=== PATIENT | male | born 1985 | race Caucasian/White ===

== ENCOUNTER 2022-05-30 08:27 | Outpatient (REF) | payer OTHER, SELFPAY ==
[2022-05-30 11:48] LABS: MANUAL DIFF FLAG NO
[2022-05-30 11:58] LABS: Basophils Absolute Auto 0.1 X10*3/uL (0.0-0.2); Eosinophils Absolute Auto 0.1 X10*3/uL (0.0-0.4); Eosinophils Percent Auto 1.3 % (0-4); Hematocrit 47.5 % (42.0-52.0); Hemoglobin 16.2 g/dl (14.0-18.0); Imm Gran Abs Auto 0.02 X10*3/uL (0.00-0.03); Imm Gran Pct Auto 0.4 % (0.0-0.4); Lymphocytes Percent Auto 38.6 % (20-40); Mean Corpuscular HGB Conc 34.1 g/dl (31.0-36.0); Mean Corpuscular Hemoglobin 28.7 pg (27.0-33.0); Mean Corpuscular Volume 84.2 fL (80.0-98.0); Mean Platelet Volume 12.6 fL (9.4-12.4); Monocytes Absolute Auto 0.5 X10*3/uL (0.1-1.2); Monocytes Percent Auto 8.6 % (2-11); Neutrophils Absolute Auto 2.6 x10*3/uL (2.0-8.3); Neutrophils Percent Auto 50.1 % (45-73); Platelet Count 170 X10*3/uL (160-400); Red Blood Count 5.64 X10*6/uL (4.60-5.80); Red Cell Distribution Width 13.2 % (11.0-16.0); White Blood Count 5.2 X10*3/uL (4.8-10.8)
[2022-05-30 12:06] LABS: Appearance Urine Clear; Color Urine Yellow; Glucose Urine UA Negative (Negative); Leukocyte Esterase Urine Negative (Negative); Nitrite Urine Negative (Negative); Specific Gravity - Urine <= 1.005 (1.005-1.025); Urine Blood Negative (Negative); Urine Ketones Negative (Negative); Urine Protein Negative (Neg-Trace)
[2022-05-30 12:49] LABS: TSH reflex Free T4 1.92 uIU/mL (0.32-4.0)
[2022-05-30 12:51] LABS: Alanine Aminotransferase 26 U/L (0-40); Albumin Level 5.1 g/dL (3.5-5.0); Alkaline Phosphatase 61 U/L (39-117); Anion Gap 18 (12-20); Aspartate Amino Transferase 18 U/L (5-37); Bilirubin Total 0.9 mg/dL (0.0-1.0); Blood Urea Nitrogen 13 mg/dL (9-16); Calcium 10.4 mg/dL (8.4-10.2); Carbon Dioxide 26 mmol/L (22-29); Chloride 100 mmol/L (96-108); Cholesterol 286 mg/dL; Estimated Glomerular Filt Rate > 60; Glucose Fasting 87 mg/dL (60-99); HDL Cholesterol 57 mg/dL; LDL Cholesterol Calculated 208 mg/dl; Potassium 4.7 mmol/L (3.3-5.1); Sodium 139 mmol/L (135-145); Total Protein 7.8 g/dL (6.5-8.0); Triglycerides 109 mg/dL
== END 2022-05-30 08:28 | disposition home or self-care (01) ==
LOC: HO.HMGCLDS 08:27
PROVIDERS: PCP Nurse Practitioner Family; Visit Provider Nurse Practitioner Family
DX: Z00.00 Encounter for general adult medical examination without abnormal findings (principal)
CPT/HCPCS: 36415; 80053; 80061; 81003; 84443; 85025

== ENCOUNTER 2022-09-19 07:15 | Outpatient (REF) | payer OTHER, BC, SELFPAY ==
[2022-09-19 12:57] LABS: Alanine Aminotransferase 21 U/L (0-40); Albumin Level 4.6 g/dL (3.5-5.0); Alkaline Phosphatase 49 U/L (39-117); Anion Gap 13 (12-20); Aspartate Amino Transferase 17 U/L (5-37); Bilirubin Total 0.5 mg/dL (0.0-1.0); Blood Urea Nitrogen 22 mg/dL (9-16); Carbon Dioxide 27 mmol/L (22-29); Chloride 105 mmol/L (96-108); Cholesterol 260 mg/dL; Estimated Glomerular Filt Rate > 60; Glucose Fasting 88 mg/dL (60-99); HDL Cholesterol 48 mg/dL; LDL Cholesterol Calculated 192 mg/dl; Potassium 4.6 mmol/L (3.3-5.1); Sodium 140 mmol/L (135-145); Total Protein 7.2 g/dL (6.5-8.0); Triglycerides 101 mg/dL
== END 2022-09-19 07:16 | disposition home or self-care (01) ==
LOC: HO.HMGCLDS 07:15
PROVIDERS: PCP Nurse Practitioner Family; Visit Provider Nurse Practitioner Family
DX: E78.5 Hyperlipidemia, unspecified (principal)
CPT/HCPCS: 36415; 80053; 80061

== ENCOUNTER → 2022-10-21 09:24 | Outpatient (BNVA) | payer BC, SELFPAY | PROVIDERS: PCP Nurse Practitioner Family; Visit Provider Urology | DX: Z13.89 Encounter for screening for other disorder (principal) ==

== ENCOUNTER → 2022-12-19 13:45 | Outpatient (BNVA) | payer BC, SELFPAY | PROVIDERS: PCP Nurse Practitioner Family; Visit Provider Urology | DX: Z30.2 Encounter for sterilization (principal); F41.8 Other specified anxiety disorders | CPT/HCPCS: 55250 ==

== ENCOUNTER 2023-02-27 06:17 | Outpatient (REF) | payer BC, SELFPAY ==
[2023-02-27 12:07] LABS: Alanine Aminotransferase 47 U/L (0-40); Albumin Level 4.7 g/dL (3.5-5.0); Alkaline Phosphatase 51 U/L (39-117); Anion Gap 13 (12-20); Aspartate Amino Transferase 27 U/L (5-37); Bilirubin Total 0.5 mg/dL (0.0-1.0); Blood Urea Nitrogen 17 mg/dL (9-16); Calcium 10.3 mg/dL (8.4-10.2); Carbon Dioxide 27 mmol/L (22-29); Chloride 103 mmol/L (96-108); Cholesterol 183 mg/dL; Estimated Glomerular Filt Rate > 60; Glucose Fasting 80 mg/dL (60-99); HDL Cholesterol 56 mg/dL; LDL Cholesterol Calculated 111 mg/dl; Potassium 4.1 mmol/L (3.3-5.1); Sodium 139 mmol/L (135-145); Total Protein 7.3 g/dL (6.5-8.0); Triglycerides 80 mg/dL
== END 2023-02-27 06:18 | disposition home or self-care (01) ==
LOC: HO.HMGCLDS 06:17
PROVIDERS: PCP Nurse Practitioner Family; Visit Provider Nurse Practitioner Family
DX: E78.5 Hyperlipidemia, unspecified (principal)
CPT/HCPCS: 36415; 80053; 80061

== ENCOUNTER 2023-03-17 08:36 | Outpatient (REF) | payer BC, SELFPAY ==
--- NOTE | ~2023-03-17 | US_ITS ---
EXAMINATION: US ABDOMEN COMPLETE CLINICAL INFORMATION: Elevated liver enzymes. COMPARISON: None available. TECHNIQUE: Real-time imaging of the abdominal viscera. Limited visualization due to bowel gas and body habitus. FINDINGS: PANCREAS: Limited visualization. ABDOMINAL AORTA: Limited visualization. INFERIOR VENA CAVA: Visualized portions are normal. LIVER: Diffuse increase in echogenicity of the liver is characteristic of primary hepatocellular disease, possibly due to hepatic steatosis and further limits visualization. GALLBLADDER: Borderline gallbladder wall thickening of 0.3 cm. Echogenic shadowing at the fundal aspect of the gallbladder is difficult to evaluate, but may represent adenomyomatosis and calcifications. COMMON BILE DUCT: Normal in caliber measuring 0.7 cm in diameter. RIGHT KIDNEY: No hydronephrosis. No renal calculi. Renal cortical thickness is normal. Limited visualization. The kidney measures 11.0 cm in maximum dimension. LEFT KIDNEY: No hydronephrosis. No renal calculi. Renal cortical thickness is normal. Limited visualization. The kidney measures 10.3 cm in maximum dimension. SPLEEN: A 1.2 x 1.5 x 1.3 cm soft tissue mass adjacent to the spleen is characteristic of a splenule. The spleen measures 11.3 cm in maximum dimension. FREE FLUID: None. US/US abdomen complete IMPRESSION: 1. Diffuse increase in echogenicity of the liver is characteristic of primary hepatocellular disease, possibly due to hepatic steatosis and further limits visualization. 2. Borderline gallbladder wall thickening of 0.3 cm. Echogenic shadowing at the fundal aspect of the gallbladder is difficult to evaluate, but may represent adenomyomatosis and calcifications. Correlation with clinical exam recommended to determine further management. Recommend follow up ultrasound in 6-12 months.
== END 2023-03-17 08:37 | disposition home or self-care (01) ==
LOC: HO.HMGCX 08:36
PROVIDERS: PCP Nurse Practitioner Family; Visit Provider Nurse Practitioner Family
DX: R74.8 Abnormal levels of other serum enzymes (principal)
CPT/HCPCS: 76700

== ENCOUNTER 2023-04-14 14:18 | Outpatient (AMB) | payer BC, SELFPAY ==
--- NOTE | 2023-04-14 14:26 | A.OFFVIS_ITS ---
Intake Intake Visit Reasons: vasectomy/semen Intake Note: Patient is present for Follow Up semen check Urology Med: none Antibiotic Allergy: None Blood Thinner: None Pharmacy: [facility] Allergies No Known Allergies Allergy (Verified 04/14/23 14:28) HPI HPI Comments History of Present Illness Details Ahmet is a very pleasant male. He is a patient of Dr. Culp. He is seen for the following urologic condition - anxiety about health - Vasectomy postop No sperm seen on high-power field evaluation Minimal issues following procedure Vasectomy - postop The patient presents for vasectomy postop He is currently He has fathered - 2 child, with a single partner The youngest child is - 2 years on. His partner is aware and permissive for a vasectomy Current form of control is condoms The vasectomy may be complicated due to a history of no complicating issues, inguinal hernia repair, orchidopexy, history of orchitis, orchiectomy. Patient education has been provided via AUA video, via printed information, risks of failure, recovery time, bruising and potential pain syndrome have been stressed [facility] Social History Housing: House Patient Tobacco Use Status: Never used Tobacco e-Cigarette/Vaping Use: Never Used service: Yes Current occupational status: employed Cognitive needs: No Hearing needs: No Vision needs: No Review of Systems Const Denies chills and Denies fever(s) Card Reports no additional complaints and Denies syncope Resp Denies cough GI Denies abdominal pain and Denies heartburn Reports as per HPI and Denies change in libido Neuro Denies syncope Psych Denies change in libido Endo Denies change in libido Physical Exam Const General: cooperative, healthy appearing, comfortable and no acute distress Orientation/consciousness: patient oriented x3 HEENT Face and sinus: Yes normal facial exam Mouth: moist mucous membranes Neck Neck: Yes normal visual inspection, Yes full ROM and Yes trachea midline Chest Chest palpation & inspection: normal inspection of the chest Resp Effort & Inspection: normal respiratory effort, able to speak in complete senten nuria and no respiratory distress GI Inspection: Yes normal to inspection Back/Spine/Pelvis Cervical Spine: normal cervical lordosis Thoracic/Lumbar Spine: thoracic and lumbar spine normal to inspection Skin General skin exam: no rashes or lesions noted Neuro General: patient oriented x3, gait normal, tone normal and moves all extremities Extrem General: Yes normal to inspection and Yes capillary refill normal Assessment & Plan Assessment & Plan (1) Anxiety about health: Code(s): F41.8 - Other specified anxiety disorders Plan P.r.n. Patient Instructions: Imaging studies, laboratory and physical exam results were discussed and reviewed in detail. No major barriers to patient understanding were identified. An opportunity to ask questions regarding the treatment plan was provided. All questions were answered. The patient expressed understanding and agreement with the above treatment plan. The patient is aware they should contact our office by phone for worsening of their current condition or the appearance of new urologic symptoms. Compliance is encouraged with any medications and followup testing that is ordered. It is a privilege to participate in the urologic care of your patient. If you have any questions or concerns regarding treatment for the above conditions, or other urologic issues, please do not hesitate to contact me. The office telephone contact is [phone]. This note is constructed using voice recognition software. While every effort has been made to ensure accuracy screen printing press operator errors may have been included. Yours sincerely, Dr Trevor Hilliard MD, [facility], [place] - Urology Providers of Expert, Compassionate Care for the Genitourinary System Coding Level of Care Code Est Pt Level 3 (23694) Diagnoses Anxiety about health F41.8
== END 2023-04-14 15:10 | disposition home or self-care (01) ==
PROVIDERS: Visit Provider Urology
DX: F41.8 Other specified anxiety disorders (principal)
CPT/HCPCS: 99213

== ENCOUNTER → 2023-04-14 14:18 | Outpatient (BNVA) | payer BC, SELFPAY | PROVIDERS: Visit Provider Urology ==

== ENCOUNTER 2023-05-14 06:08 | Outpatient (REF) | payer BC, SELFPAY ==
[2023-05-14 13:00] LABS: Alanine Aminotransferase 28 U/L (0-40); Albumin Level 4.5 g/dL (3.5-5.0); Alkaline Phosphatase 49 U/L (39-117); Anion Gap 11 (12-20); Aspartate Amino Transferase 21 U/L (5-37); Bilirubin Direct 0.2 mg/dL (0.0-0.5); Bilirubin Total 0.6 mg/dL (0.0-1.0); Blood Urea Nitrogen 16 mg/dL (9-16); Calcium 9.7 mg/dL (8.4-10.2); Carbon Dioxide 27 mmol/L (22-29); Chloride 104 mmol/L (96-108); Cholesterol 223 mg/dL (<200); Estimated Glomerular Filt Rate > 60; Glucose Fasting 76 mg/dL (60-99); HDL Cholesterol 49 mg/dL (>40); LDL Cholesterol Calculated 159 mg/dL (<100); Potassium 4.3 mmol/L (3.3-5.1); Sodium 138 mmol/L (135-145); Total Protein 6.9 g/dL (6.5-8.0); Triglycerides 78 mg/dL (<150)
[2023-05-14 13:15] LABS: Vitamin D 25-OH Total 39.6 ng/mL (>30)
[2023-05-15 09:45] LABS: HBS Num1 19.61 mIU/mL (0-7.99); HBc Num1 0.08 S/CO (0.00-0.79); HBsAGNum1 0.36 S/CO (0.00-0.99); Hepatitis A Antibody IgM 0.16 Index (0-0.79); Hepatitis B Core Antibody Nonreactive (Nonreactive); Hepatitis B Surface Antigen Negative (Negative); ~HepC Num1 0.04 S/CO (0.00-0.79); ~Hepatitis A Antibody IgM Nonreactive (Nonreactive); ~Hepatitis B Surface Antibody REACTIVE (Nonreactive); ~Hepatitis C Antibody Nonreactive (Nonreactive)
[2023-05-17 23:23] LABS: Calcium, Ionized 5.3 mg/dL (4.7-5.5)
[2023-05-18 13:59] LABS: Calcium (PTHI) 9.7 mg/dL (8.6-10.3); PTHI 25 pg/mL (16-77)
== END 2023-05-14 06:09 | disposition home or self-care (01) ==
LOC: HO.HMGCLDS 06:08
PROVIDERS: PCP Nurse Practitioner Family; Visit Provider Nurse Practitioner Family
DX: R74.8 Abnormal levels of other serum enzymes (principal); E83.52 Hypercalcemia; E78.5 Hyperlipidemia, unspecified
CPT/HCPCS: 36415; 80053; 80061; 80076; 82248; 82306; 82330; 83970; 86704; 86706; 86709; 86803; 87340

== ENCOUNTER 2023-05-18 16:20 | Outpatient (AMB) | payer BC, SELFPAY ==
[2023-05-18 16:43] VITALS: BP 120/76; PULSE 84; O2SAT 97; BMI 28.9
--- NOTE | 2023-05-18 16:43 | A.OFFPC_ITS ---
Vital Signs 05/18/23 16:43 Height 5 ft 8 in Weight 190 lb 4 oz BMI 28.9 BP 120/76 Blood Pressure Location Rt brachial Position Sitting Pulse 84 Pulse Source Pulse Oximeter Pulse Oximetry (%) 97 Oxygen Delivery Method Room Air Intake Visit Reasons: PE Allergies No Known Allergies Allergy (Verified 05/18/23 16:45) Medication List - Last Reconciled 05/18/23 by CALEB Grace rosuvastatin 10 mg PO DAILY 90 days Tobacco use date assessed: 05/18/23 Dental Screening Dental Screen Date: 05/18/23 Did you have a dental visit in the last 12 months?: Yes Did you have a dental problem in the last 6 months where you did not have access to dental care?: No Was dental information given to patient?: Patient has dentist HPI PE HPI Details Pt is here for a PE. Labs were already performed. Pt's cholesterol is elevated. He has been on rosuvastatin in the past but is no longer. Will restart rosuvastatin 10mg as this helped in the past. Pt will continue to work on his diet. Pt reports that last Thursday while at the gym he developed a headache in the right occipital region while doing lat pulls. He stopped going to the gym for 3-4 days and this went away. ? muscle pull. Denies photopbobia and sonophobia. Will cont to monitor [facility] Social History Housing: House Patient Tobacco Use Status: Never used Tobacco e-Cigarette/Vaping Use: Never Used service: Yes Current occupational status: employed Cognitive needs: No Hearing needs: No Vision needs: No Review of Systems Const Denies chills and Denies fever(s) Eyes Denies blurry vision ENT Denies vertigo, Denies dizziness and Denies sore throat Card Denies chest pain at rest, Denies chest pain with activity, Denies diaphoresis, Denies dyspnea and Denies dyspnea on exertion Resp Denies cough, Denies dyspnea, Denies dyspnea on exertion and Denies wheezing GI Denies abdominal pain, Denies melena, Denies hematochezia, Denies constipation, Denies diarrhea and Denies loose stools Denies hematuria Musc Denies numbness and Denies tingling Skin/Breast Denies lesions Neuro Denies vertigo, Denies dizziness, Denies numbness and Denies tingling Psych Denies anxiety, Denies depression, Denies homicidal ideation, Denies suicidal ideation and Denies other (substance abuse) Aller/Immun Denies wheezing Physical exam (Primary Care) Vital Signs: Last Vital Signs Pulse 84 05/18/23 16:43 BP 120/76 05/18/23 16:43 Pulse Ox 97 05/18/23 16:43 Oxygen Delivery Method Room Air 05/18/23 16:43 BMI result Body Mass Index 28.9 Tobacco/Smoking Status: Tobacco use Status Tobacco use date assessed 05/18/23 05/18/23 16:47 Patient Tobacco Use Status Never used Tobacco 05/18/23 16:44 e-Cigarette/Vaping Use Never Used 05/18/23 16:44 Const General: cooperative Nutritional Appearance: well nourished Orientation/consciousness: patient oriented x3 HENMT Head: Yes normal to inspection, Yes normocephalic and Yes atraumatic Ears: TM's normal bilaterally Eyes General: appearance normal, both eyes and all related structures Alignment and Position: alignment normal and position normal Neck Neck: Yes normal visual inspection and Yes no lymphadenopathy Thyroid: Thyroid normal Resp Effort & Inspection: normal respiratory effort Auscultation: clear to auscultation bilaterally Cardio Rate: regular rate Rhythm: regular rhythm Heart sounds: S1 normal heart sound present, S2 normal heart sound present and no murmurs GI Palpation (GI): Soft to palpation and nontender Auscultation: normal bowel sounds Male General Exam: Yes normal external exam Penis: normal penis Scrotum: scrotum normal, testes descended bilaterally and no inguinal hernias Testes: no testicular mass Skin Rashes: no rashes Neuro General: patient oriented x3, moves all extremities, no focal motor deficits and deep tendon reflexes 2+ bilaterally Cranial nerves: Yes CN's II-XII intact bilaterally Romberg Test: Negative Psych Appearance: grossly normal Mental Status: mental status grossly normal Speech and movement: Normal speech and movement present Affect: normal affect Attitude: cooperative Thought process: Normal thought process present Thought content: Normal thought content present Insight: Good insight present (Psych) Judgement: Good judgement present (Psych) Assessment and Plan Assessment & Plan (1) Physical exam: Code(s): Z00.00 - Encounter for general adult medical examination without abnormal findings (2) Dyslipidemia: Code(s): E78.5 - Hyperlipidemia, unspecified (3) Muscle strain: Code(s): T14.8XXA - Other injury of unspecified body region, initial encounter Medications: New rosuvastatin 10 mg PO DAILY 90 tabs 0RF 90 days rosuvastatin 20 mg PO DAILY 90 days 90 tabs 0RF Coding Level of Care Code Est Pt Level 3 (66614) Est Pt Prev Care 18-39y(10725) Diagnoses Physical exam Z00.00 Dyslipidemia E78.5 Muscle strain T14.8XXA
== END 2023-05-18 17:08 | disposition home or self-care (01) ==
PROVIDERS: PCP Nurse Practitioner Family; Visit Provider Nurse Practitioner Family
DX: Z00.00 Encounter for general adult medical examination without abnormal findings (principal); E78.5 Hyperlipidemia, unspecified; T14.8XXA Other injury of unspecified body region, initial encounter
CPT/HCPCS: 99395

== ENCOUNTER 2023-06-18 07:32 | Outpatient (REF) | payer BC, SELFPAY | END 2023-06-18 07:33 | disposition home or self-care (01) | LOC: HO.CT 07:32 | PROVIDERS: PCP Nurse Practitioner Family; Visit Provider Nurse Practitioner Family | DX: Z13.89 Encounter for screening for other disorder (principal) ==

== ENCOUNTER 2024-11-01 08:41 | Outpatient (AMB) | payer BC, SELFPAY ==
[2024-11-01 08:45] VITALS: BP 122/78; PULSE 76; TEMP 36.8; O2SAT 98; BMI 28.9
--- NOTE | 2024-11-01 08:45 | MHC.PC.OV ---
Vital Signs 11/01/24 08:45 Height 5 ft 8 in Weight 190 lb BMI 28.9 BP 122/78 Blood Pressure Location Lt brachial Position Sitting Pulse 76 Pulse Source Pulse Oximeter Temp 98.2 F Temp Source Oral Pulse Oximetry (%) 98 Intake Visit Reasons: PE Intake Note: pt is here for pe [facility] Required: No Accompanied by: Self / Same As Patient Allergies No Known Allergies Allergy (Verified 11/01/24 09:19) Medication List - Last Reconciled 11/01/24 by CALEB Grace Tobacco use date assessed: 11/01/24 Dental Screening Dental Screen Date: 11/01/24 Did you have a dental visit in the last 12 months?: Yes Did you have a dental problem in the last 6 months where you did not have access to dental care?: No Was dental information given to patient?: Patient has dentist HPI PE HPI Details History of Present Illness The patient is a 39-year-old male presenting for a routine physical examination. He denies experiencing any current symptoms, including shortness of breath, chest pain, abdominal pain, blood in stool, constipation, and diarrhea. The patient also reports no mental health concerns, specifically denying suicidality and homicidality. His visit is based on routine health maintenance, and there are no acute or chronic health issues discussed. Health Maintenance - Routine physical examination Social History Review of Systems - Respiratory: Denies shortness of breath. - Cardiovascular: Denies chest pain. - Gastrointestinal: Denies abdominal pain, blood in stool, constipation, diarrhea. - Psychiatric: Denies suicidal or homicidal ideations. Physical Exam General: Cooperative, healthy appearing, comfortable, no acute distress and well developed Orientation: Patient oriented x3 Limitations: No limitations Head: Normal to inspection Ears: Hearing grossly normal bilaterally Nose: Normal external nose present Face and sinus: Normal facial exam Eyes: Appearance normal, both eyes and all related structures Neck: Normal visual inspection and Yes full ROM Respiratory: Normal respiratory effort and able to speak in complete sentences. Clear to auscultation bilaterally Cardiovascular: Regular rate and rhythm. Normal S1 and S2 GI: Normal to inspection. Soft to palpation and nontender Skin: No rashes or lesions noted Neuro: Patient oriented x3 Extremities: Normal to inspection Results Plan The patient attended the clinic for a routine physical examination, and no active medical issues were identified during this visit. The examination was benign, and the patient denied experiencing any concerning symptoms. The plan involves conducting routine laboratory tests to assess overall health, with future follow-up to discuss any findings if necessary. No immediate medical interventions or new prescriptions are required. Discussion Notes During the visit, I discussed with the patient the nature of a routine physical examination, emphasizing the importance of ongoing health maintenance. I informed him about the plan to conduct routine laboratory tests as part of this health check. I also reassured him regarding his current health status, as both his subjective reports and the physical examination were benign. Follow-up care and labs were advised to ensure continued health monitoring, with the aim of addressing any changes in health status that might arise in the future. Patient Instructions - Continue with routine health maintenance. - Follow up with recommended laboratory tests as discussed. - Return for follow-up appointments to review lab results and discuss any health concerns. - Report any new symptoms or concerns should they arise before the next scheduled visit. [facility] Surgical History No pertinent past surgical history Social History (Reviewed 11/01/24 @ 09:18 by Dima Donohue SALES REPRESENTATIVE [employer] [facility]) Housing: [place] Patient Tobacco Use Status: Never used Tobacco e-Cigarette/Vaping Use: Never Used service: Yes Current occupational status: employed Cognitive needs: No Hearing needs: No Vision needs: No Questionnaire PHQ-9 Over the last 2 weeks, how often have you been bothered by any of the following problems? 1. Little interest or pleasure in doing things: not at all 2. Feeling down, depressed, or hopeless: not at all 3. Trouble falling or staying asleep, or sleeping too much: not at all 4. Feeling tired or having little energy: not at all 5. Poor appetite or overeating: not at all 6. Feeling bad about yourself - or that you are a failure or have let yourself or your family down: not at all 7. Trouble concentrating on things, such as reading the newspaper or watching television: not at all 8. Moving or speaking so slowly that other people could have noticed. Or the opposite - being so fidgety or restless that you have been moving around a lot more than usual: not at all 9. Thoughts that you would be better off or of hurting yourself in some way: not at all Total score: 0 Depression Screening Interpretation: Negative Depression Screening Done: Yes 28014 - PHQ-9 Billing: Yes Source: Developed by Drs. Kelvin Kumar, Dang Hunter, Mukul Ibarra and colleagues, with an educational shaye from [email or web address]. Thrive Questionnaire Date Thrive assessed: 11/01/24 I am a: Patient What is your living situation today?: I have a steady place to live Within the past 12 months, did the food you bought not last and you didn't have the money to get more?: Never true Within the past 12 months, did you worry whether your food would run out before you got money to buy more?: Never true Do you have trouble paying for medicines?: No Do you have trouble getting transportation to medical appointments?: No Do you have trouble paying your heating and electricity bill?: No Do you have trouble taking care of your child, family member or friend?: No Do you have trouble with day-to-day activities such as bathing, preparing meals, shopping, managing finances, etc.?: No Are you currently unemployed and looking for a job?: No Are you interested in more education?: No Please select the resources that you would like help with: None Currently or been in a relationship where the following occur: No concerns reported THRIVE Score: 0 AUDIT C Alcohol Use Questionnaire (AUDIT-C) 1. How often do you have a drink containing alcohol?: 2-4 times a month 2. How many drinks containing alcohol do you have on a typical day when you are drinking?: 1 or 2 3. How often do you have six or more drinks on one occasion?: Never Total Score: 2 Score Reviewed/Action Taken: Yes HILL-7 AMB Questionnaire HILL-7 Date HILL - 7 assessed: 11/01/24 Feeling nervous, anxious, or on edge: 0 = Not at all Not being able to stop or control worryin = Not at all Worrying too much about different things: 0 = Not at all Trouble relaxin = Not at all Being so restless that it is hard to sit still: 0 = Not at all Becoming easily annoyed or irritable: 1 = Several days Feeling afraid as if something awful might happen: 0 = Not at all Total HILL-7 score (0-4 normal; 5-9 mild; 10-14 moderate; 15-21 severe): 1 Source: Developed by Drs. Kelvin Kumar, Dang Hunter, Mukul Ibarra and colleagues, with an educational shaye from [email or web address]. HILL-7 Assessment Billing HILL-7 Assessment Tool: HILL-7 Assessment 12629 Physical exam (Primary Care) Vital Signs: Last Vital Signs Temp 98.2 F 11/01/24 08:45 Pulse 76 11/01/24 08:45 BP 122/78 11/01/24 08:45 Pulse Ox 98 11/01/24 08:45 BMI result Body Mass Index 28.9 Tobacco/Smoking Status: Tobacco use Status Tobacco use date assessed 11/01/24 11/01/24 08:47 Patient Tobacco Use Status Never used Tobacco 11/01/24 08:47 e-Cigarette/Vaping Use Never Used 11/01/24 08:47 PHQ-9: PHQ-9 Score PHQ-9: Total score 0 11/01/24 08:47 Depression Screening Interpretation: Negative Thrive Assessment: Date of Thrive Assessment Date Thrive assessed 11/01/24 11/01/24 08:47 Currently or been in a relationship where the following occur: No concerns reported Coding Level of Care Code Est Pt Prev Care 18-39y(74345) Diagnoses Physical exam Z00. Additional Codes HILL-7 Assessment Billing - HILL-7 Assessment Tool: HILL-7 Assessment 69184 ([id number]) PHQ-9 - 66434 - PHQ-9 Billing: Yes ([id number]) Assessment & Plan Assessment & Plan (1) Physical exam: Code(s): Z00.00 - Encounter for general adult medical examination without abnormal findings Category: Medical Plan . Orders: Orders Comprehensive Monument. Panel Fast Today Z00.00 - Encounter for general adult medical examination without abnormal findings Complete Blood Count Auto Diff Today Z00.00 - Encounter for general adult medical examination without abnormal findings TSH reflex Free T4 Today Z00.00 - Encounter for general adult medical examination without abnormal findings UA CC w/rflx Micro + Cult Today Z00.00 - Encounter for general adult medical examination without abnormal findings Lipid Panel Today Z00.00 - Encounter for general adult medical examination without abnormal findings
== END 2024-11-01 09:59 | disposition home or self-care (01) ==
PROVIDERS: PCP Nurse Practitioner Family; Visit Provider Nurse Practitioner Family
DX: Z00.00 Encounter for general adult medical examination without abnormal findings (principal)

== ENCOUNTER → 2024-11-01 08:41 | Outpatient (BNVA) | payer BC, SELFPAY | PROVIDERS: PCP Nurse Practitioner Family; Visit Provider Nurse Practitioner Family | DX: Z00.00 Encounter for general adult medical examination without abnormal findings (principal) | CPT/HCPCS: 96127 ==

== ENCOUNTER 2025-02-01 06:10 | Outpatient (REF) | payer BC, SELFPAY ==
[2025-02-01 10:04] LABS: MANUAL DIFF FLAG NO
[2025-02-01 10:21] LABS: Basophils Absolute Auto 0.1 X10*3/uL (0.0-0.2); Basophils Percent Auto 0.9 % (0-2); Eosinophils Absolute Auto 0.1 X10*3/uL (0.0-0.4); Eosinophils Percent Auto 2.3 % (0-4); Hematocrit 43.4 % (42.0-52.0); Hemoglobin 14.5 g/dl (14.0-18.0); Imm Gran Abs Auto 0.02 X10*3/uL (0.00-0.03); Imm Gran Pct Auto 0.4 % (0.0-0.4); Lymphocytes Absolute Auto 2.3 X10*3/uL (1.2-4.9); Lymphocytes Percent Auto 40.8 % (20-40); Mean Corpuscular HGB Conc 33.4 g/dl (31.0-36.0); Mean Corpuscular Hemoglobin 28.5 pg (27.0-33.0); Mean Corpuscular Volume 85.3 fL (80.0-98.0); Mean Platelet Volume 12.9 fL (9.4-12.4); Monocytes Absolute Auto 0.5 X10*3/uL (0.1-1.2); Monocytes Percent Auto 9.3 % (2-11); Neutrophils Absolute Auto 2.7 x10*3/uL (2.0-8.3); Neutrophils Percent Auto 46.3 % (45-73); Platelet Count 197 X10*3/uL (160-400); Red Blood Count 5.09 X10*6/uL (4.60-5.80); Red Cell Distribution Width 13.2 % (11.0-16.0); White Blood Count 5.7 X10*3/uL (4.8-10.8)
[2025-02-01 11:21] LABS: Alanine Aminotransferase 73 U/L (0-40); Albumin Level 4.6 g/dL (3.5-5.0); Anion Gap 13 (12-20); Aspartate Amino Transferase 40 U/L (5-37); Bilirubin Total 0.5 mg/dL (0.0-1.0); Blood Urea Nitrogen 18 mg/dL (9-16); Calcium 9.9 mg/dL (8.4-10.2); Carbon Dioxide 26 mmol/L (22-29); Chloride 106 mmol/L (96-108); Cholesterol 241 mg/dL (<200); Estimated Glomerular Filt Rate > 60; Glucose Fasting 88 mg/dL (60-99); HDL Cholesterol 51 mg/dL (>40); LDL Cholesterol Calculated 169 mg/dL (<100); Potassium 4.2 mmol/L (3.3-5.1); Sodium 141 mmol/L (135-145); Total Protein 6.9 g/dL (6.5-8.0); Triglycerides 107 mg/dL (<150)
[2025-02-01 13:05] LABS: Alkaline Phosphatase 63 U/L (39-117)
[2025-02-01 13:15] LABS: Appearance Urine Clear; Color Urine Yellow; Glucose Urine UA Negative (Negative); Leukocyte Esterase Urine Negative (Negative); Nitrite Urine Negative (Negative); PH 8.5 (5.0-9.0); Urine Blood Negative (Negative); Urine Ketones Negative (Negative); Urine Protein Negative (Neg-Trace)
== END 2025-02-01 06:11 | disposition home or self-care (01) ==
LOC: HO.HMGCLDS 06:10
PROVIDERS: PCP Nurse Practitioner Family; Visit Provider Nurse Practitioner Family
DX: Z00.00 Encounter for general adult medical examination without abnormal findings (principal); Z13.6 Encounter for screening for cardiovascular disorders
CPT/HCPCS: 36415; 80053; 80061; 81003; 84443; 85025

== ENCOUNTER 2025-03-13 08:53 | Outpatient (REF) | payer BC, SELFPAY ==
--- NOTE | ~2025-03-13 | US_ITS ---
CLINICAL HISTORY: R74.8 - Abnormal levels of other serum enzymes --- Additional Notes or Special Instructions: elevated liver enzymes, gb anomaly US abdomen complete Comparison: None provided Findings: The visualized pancreas is normal. The aorta and inferior vena cava are normal caliber. The liver is normal in size and echotexture. There is no intrahepatic bile duct dilatation. The common duct is 5.0 mm in diameter. The gallbladder is normal. There is no sonographic Valenzuela sign. Adenomyomatosis. The main portal vein is antegrade. The right kidney is 10.4 cm in length. The left kidney is 10.5 cm in length. The spleen is normal. No ascites. IMPRESSION: Adenomyomatosis of the gallbladder. Otherwise, unremarkable examination. This document has been electronically signed by: Malini Rocha MD on 03/13/2025 16:22:31
== END 2025-03-13 08:54 | disposition home or self-care (01) ==
LOC: HO.HMGCX 08:53
PROVIDERS: PCP Nurse Practitioner Family; Visit Provider Nurse Practitioner Family
DX: R74.8 Abnormal levels of other serum enzymes (principal); Q44.1 Other congenital malformations of gallbladder
CPT/HCPCS: 76700

== ENCOUNTER → 2025-03-13 08:57 | Outpatient (BNV) | payer BC, SELFPAY | PROVIDERS: PCP Nurse Practitioner Family; Visit Provider Nuclear Medicine | DX: R74.8 Abnormal levels of other serum enzymes (principal) | CPT/HCPCS: 76700 ==

== ENCOUNTER 2025-07-13 06:22 | Outpatient (AMB) | payer BC, SELFPAY ==
--- OUTSIDE RECORDS SUMMARY | 2025-07-13 06:24 | XMS_ITS | Continuity of Care Document ---
Author Name [facility] Organization [facility] Care Team Providers Care Programmer Business Name Role Phone [facility] Unavailable Unavailable Problems Combined list of problems from Department of Defense and Veterans Affairs facilities. It does not include entries that were removed or entered in error. Problem Status Onset Date Problem Type Date of Resolution Comments Source Attention deficit hyperactivity disorder Active 4 Condition [facility] ECG: normal sinus rhythm Active Condition Dec 25, 2016 Entered By: BENITO OLIVA Comment: 12/15 echo normal LVEF 67% [facility] Nicotine user Active Condition [facility] visit for: occupational health / fitness exam Active Condition [facility] closed fracture left little finger PIP Active Condition [facility] benign neoplasm Active Condition [facility] asthma exercise-induced Active Condition DoD Allergies, Adverse Reactions, Alerts Combined list of allergies from Department of Defense and Veterans Affairs facilities. It does not include entries that were removed or entered in error. Substance Category Reaction Severity Reaction type Status Date Reported Comments Source No Known Allergies Drug allergy (disorder) active 02/19/2009 [facility] Immunizations Combined list of available immunizations from the Department of Defense and Veterans Affairs facilities. Immunization Series Date Given Administered By Site Reaction Lot Number CVX Code Drug Tdp Displays Analyst Status Comments Source influenza, injectable, quadrivalent- pf 2021 [id number] GlaxoSmithKli ne complet ed influenza , injectabl e, quadrival ent-pf 06/15/22 Given Ambulat ory Pharmac y influenza, injectable, quadrivalent- pf 2020 [id number] 150 Seqirus complet ed influenza , injectabl e, quadrival ent-pf 07/06/21 Given Ambulat ory Pharmac y SARS-CoV-2 (COVID-19) Ad26 vaccine, rec 2020 [id number] complet ed SARS-CoV- 2 (COVID-19 ) Ad26 vaccine, rec 05/09/21 Given Ambulat ory Pharmac y influenza, injectable, quadrivalent- pf 2019 [id number] 150 complet ed influenza , injectabl e, quadrival ent-pf 06/26/20 Given Ambulat ory Pharmac y influenza, injectable, quadrivalent- pf 2018 [id number] 150 Seqirus complet ed influenza , injectabl e, quadrival ent-pf 08/06/19 Given Ambulat ory Pharmac y tetanus, diphtheria, acellular pertu is 2017 [id number] 115 sanofi pasteur complet ed tetanus, diphtheri a, acellular pertussis 08/07/18 Given Ambulat ory Pharmac y INFLUENZA, SEASONAL, INJECTABLE 2017 141 complet ed [facility] influenza, injectable, quadrivalent- pf 2017 [id number] 150 Seqirus complet ed influenza , injectabl e, quadrival ent-pf 06/01/18 Given Ambulat ory Pharmac y influenza virus vaccine, inactivated 2016 [id number] Seqirus complet ed influenza virus vaccine, inactivat ed 05/15/17 Given Ambulat ory Pharmac y INFLUENZA, SEASONAL, INJECTABLE 2016 141 complet ed [facility] influenza, seasonal, injectable-pf 2015 [id number] 140 Seqirus complet ed influenza , seasonal, injectabl e-pf 06/07/16 Given Ambulat ory Pharmac y FLU,3 YRS (HISTORICAL) 2015 88 complet ed [facility] TD(ADULT) UNSPECIFIED FORMULATION 2015 139 complet ed [facility] FLU,3 YRS (HISTORICAL) 2014 88 complet ed [facility] influenza, seasonal, injectable-pf 2014 [id number] 140 CSL Behring complet ed influenza , seasonal, injectabl e-pf 06/02/15 Given Ambulat ory Pharmac y FLU,3 YRS (HISTORICAL) 2013 88 complet ed [facility] influenza, seasonal, injectable-pf 2013 [id number] 140 CSL Behring complet ed influenza , seasonal, injectabl e-pf 05/20/14 Given Ambulat ory Pharmac y Influenza, injectable, MDCK-pf 2012 [id number] 153 Novartis Pharmaceutica complet ed Influenza , injectabl e, MDCK-pf 07/01/13 Given Ambulat ory Pharmac y influenza, seasonal, injectable-pf 2011 [id number] 140 CSL Behring complet ed influenza , seasonal, injectabl e-pf 06/04/12 Given Ambulat ory Pharmac y influenza virus vaccine, whole virus 2011 zzLef t Arm [id number] 16 sanofi pasteur complet ed influenza virus vaccine, whole virus 10/02/11 Given Ambulat ory Pharmac y influenza, seasonal, injectable 2011 [id number] 141 sanofi pasteur complet ed influenza , seasonal, injectabl e 10/02/11 Given Ambulat ory Pharmac y influenza virus vaccine, whole virus 1 2011 GET UPTON [id number] 16 Sanofi Pasteur ([facility]) complet ed influenza virus vaccine, whole virus DoD Influenza, seasonal, injectable 6 2011 [id number] 141 Sanofi Pasteur ([facility]) complet ed Influenza , seasonal, injectabl e DoD yellow fever vaccine 2010 [id number] 37 sanofi pasteur complet ed yellow fever vaccine 09/22/10 Given Ambulat ory Pharmac y yellow fever vaccine 1 2010 [id number] 37 Sanofi Pasteur ([facility]) complet ed yellow fever vaccine DoD influenza virus vaccine,split 2009 [id number] 15 CSL Behring complet ed influenza virus vaccine,s plit 05/12/10 Given Ambulat ory Pharmac y influenza virus vaccine, split virus (incl. purified surface antigen)-reti red CODE 1 2009 [id number] 15 CSThe Wadhwa GroupapCempra, Inc. ([facility]) complet ed influenza virus vaccine, split virus (incl. purified surface antigen)- retired CODE DoD Novel Influenza-H1N 1-09,live virus,nasal 2008 [id number] 125 Yeexoo Inc comple t ed Novel Influenza -A4U3-59, live virus,med al 08/17/09 Given Ambulat ory Pharmac y Novel Influenza-H1N 1-09, live virus for nasal administratio n 1 2008 [id number] 125 PowerPot, Inc. (MED) complet ed Novel Influenza -N4I2-81, live virus for nasal administr ation DoD influenza virus vaccine, live 2008 [id number] 111 Departingune Inc comple t ed influenza virus vaccine, live 06/19/09 Given Ambulat ory Pharmac y influenza virus vaccine, live, attenuated, for intranasal use 1 2008 [id number] 111 PowerPot, Inc. (MED) complet ed influenza virus vaccine, live, attenuate d, for intranasa l use DoD tetanus, diphtheria, acellular pertu is 2008 [id number] 115 sanofi pasteur complet ed tetanus, diphtheri a, acellular pertussis 09/10/08 Given Ambulat ory Pharmac y tetanus toxoid, reduced diphtheria toxoid, and acellular pertu is vaccine, adsorbed 1 2008 [id number] 115 Sanofi Pasteur ([facility]) complet ed tetanus toxoid, reduced diphtheri a toxoid, and acellular pertussis vaccine, adsorbed DoD influenza virus vaccine,split 2007 [id number] 15 GlaxoSmithKli ne complet ed influenza virus vaccine,s plit 07/01/08 Given Ambulat ory Pharmac y influenza virus vaccine, split virus (incl. purified surface antigen)-reti red CODE 1 2007 [id number] [id number] 15 SmithKline (SK[facility]) complet ed influenza virus vaccine, split virus (incl. purified surface antigen)- retired CODE DoD influenza virus vaccine,split 2006 [id number] 15 GlaxoSmithKli ne complet ed influenza virus vaccine,s plit 07/04/07 Given Ambulat ory Pharmac y influenza virus vaccine, split virus (incl. purified surface antigen)-reti red CODE 1 2006 [id number] 3AA 15 SmithKline (SKB) complet ed influenza virus vaccine, split virus (incl. purified surface antigen)- retired CODE [facility] hepatitis A adult vaccine 2006 [id number] 52 Merck & Company Inc complet ed hepatitis A adult vaccine 06/13/07 Given Ambulat ory Pharmac y hepatitis A vaccine, adult dosage 2 2006 [id number] 52 Merck (MSD) complet ed hepatitis A vaccine, adult dosage DoD hepatitis A adult vaccine 2006 [id number] 52 GlaxoSmithKli ne complet ed hepatitis A adult vaccine 09/23/06 Given Ambulat ory Pharmac y measles, mumps and rubella virus vaccine 1 2006 03 () Not Given measles, mumps and rubella virus vaccine DoD varicella virus vaccine 1 2006 21 () Not Given varicella virus vaccine DoD hepatitis B vaccine, adult dosage 1 2006 43 () Not Given hepatitis B vaccine, adult dosage DoD hepatitis A vaccine, adult dosage 1 2006 [id number] 8AA 52 Smithine (SKB) complet ed hepatitis A vaccine, adult dosage DoD meningococcal A,C,Y,W-135 (MCV4P) 2006 [id number] 114 sanofi pasteur complet ed meningoco ccal A,C,Y,W-1 35 (MCV4P) 09/18/06 Given Ambulat ory Pharmac y influenza virus vaccine,split 2006 [id number] 15 GlaxoSmithKli ne complet ed influenza virus vaccine,s plit 09/18/06 Given Ambulat ory Pharmac y influenza virus vaccine, whole virus 2006 [id number] 16 GlaxoSmithKli ne complet ed influenza virus vaccine, whole virus 09/18/06 Given Ambulat ory Pharmac y tuberculin purified protein derivative 2006 [id number] 96 sanofi pasteur complet ed tuberculi n purified protein derivativ e 09/18/06 Given Ambulat ory Pharmac y poliovirus vaccine, inactivated 2006 [id number] 10 sanofi pasteur complet ed polioviru s vaccine, inactivat ed 09/18/06 Given Ambulat ory Pharmac y tetanus-dipht h toxoids (Td) adult/adol 2006 [id number] 09 sanofi pasteur complet ed tetanus-d iphth toxoids (Td) adult/ado l 09/18/06 Given Ambulat ory Pharmac y tetanus and diphtheria toxoids, adsorbed, preservative free, for adult use (2 Lf of tetanus toxoid and 2 Lf of diphtheria toxoid) 1 2006 [id number] 09 Sanofi Pasteur ([facility]) complet ed tetanus and diphtheri a toxoids, adsorbed, preservat iqra free, for adult use (2 Lf of tetanus toxoid and 2 Lf of diphtheri a toxoid) DoD poliovirus vaccine, inactivated 1 2006 [id number] 10 Sanofi Pasteur ([facility]MC) complet ed polioviru s vaccine, inactivat ed DoD influenza virus vaccine, split virus (incl. purified surface antigen)-reti red CODE 1 2006 [id number] 15 Collider MediaKline (SKB) complet ed influenza virus vaccine, split virus (incl. purified surface antigen)- retired CODE DoD meningococcal polysaccharid e (groups A, C, Y and W-135) diphtheria toxoid conjugate vaccine (MCV4P) 1 2006 [id number] 114 Sanofi Pasteur (PMC) complet ed meningoco ccal polysacch aride (groups A, C, Y and W-135) diphtheri a toxoid conjugate vaccine (MCV4P) DoD DTAP, UNSPECIFIED FORMULATION 2006 107 complet ed [facility] Results Combined list of recent chemistry, hematology and other laboratory results from Department of Defense and Veterans Affairs, ranging from 15 months to all on record, depending upon the facility. Order Name Results Value Reference Range Date Interpretation Specimen Comments Source Infectious Disease HIV-1/O/ 2 Non-Re active 1 ( 1:24 PM) 03/23 N Interpretive Data: INTERPRETATIO N: This method is a screening procedure for the detection of HIV p24 Antigen and Antibodies to HIV-1, including Group O, and/or HIV-2. NON-REACTIVE: HIV-1 antigen and HIV-1 / HIV-2 antibodies were not detected. No laboratory evidence of HIV infection. A negative test result does not exclude the possibility of exposure to or infection with HIV. HIV antibodies and/or p24 antigen may be undetectable in some stages of the infection and in some clinical conditions. If acute HIV infection is suspected, consider submitting another specimen to a reference laboratory for HIV-1 RNA. SCREEN REACTIVE - CONFIRMATION TO FOLLOW: Possible presence of HIV-1antibodi es, HIV-2 antibodies and/or HIV-1 p24 antigen. Specimen will reflex to the confirmation testing that fulfills the Center for Disease Control and Prevention's HIV diagnostic algorithm. Refer to [facility] Lab Guide for additional information: [email or web address] Testing performed by [employer]. 5600A-U SAFSAM EPILAB Encounters Combined list of: 1) Encounters from Department of [facility] Affairs facilities going backup to the last 18 months, not all [place] inpatient encounters are included; 2) Encounters from the Department of Defense facilities going backup to 280 months. Location Location Details Encounter Type Encounter Number Reason For Visit Attending Provider ADM Date DC Date Status Disposition Source [facility] ) OUTPATIENT [id number] needs somethi ng checked out/uri (will bring orders) GUMARO BARNEY 12/21 Released w/o Limitations [facility]( [facility] Res[facility] cy) [facility]) OUTPATIENT [id number] Skin tag craig CHANGANN RADHA A 02/19 Released w/o Limitations [facility] Team J) [facility] [facility]) OUTPATIENT [id number] possibl e broken finger on left hand MORALES RICH 11/16 Immediate Referral [facility] [facility]) OUTPATIENT [id number] out process ing [facility] STEPAN GUPTA 11/19 Released w/o Limitations [facility] [id number] AMDS Between Visit [id number] 02/13 Discharge Disposition: Home or Self Care 8344R-4 39 AMDS 8344R-439 AMDS Outpatient [id number] LETTY HATHAWAY 03/25 Discharge Disposition: Home or Self Care 8344R-4 39 AMDS Procedures Combined list of: 1) Procedures from Department of Veterans Affairs facilities going back up to thelast 18 months, not all DC non-surgical procedures are included; 2) All procedures from the Department of Defense facilities. Procedure Procedure Type Code Date Perfomer Comments Sourc e No data available for this section Ambulato ry Pharmacy FITTING OF SPECTACLES, EXCEPT FOR APHAKIA; MONOFOCAL 09/23/2006 DoD INJECTION, PENICILLIN G BENZATHINE AND PENICILLIN G PROCAINE, UP TO ,200,000 UNITS 09/23/2006 [facility] Social History Combined list of available smoking, tobacco, and other social history from Department of Defense and Veterans Affairs facilities. Social History Type Response Date Comment Source Tobacco smoking status NHIS VA-TOBACCO FORMER USER 12/11/2017 OPHIEM History of tobacco use VA-TOBACCO QUIT 5 TO < 15 YRS 12/11/2017 OPHIEM History of tobacco use CURRENT SMOKER 12/11/2017 e-cig OPHIEM History of tobacco use QUIT TOBACCO USE 1-7 YEARS AGO 05/22/2017 OPHIEM History of tobacco use QUIT TOBACCO USE 1-7 YEARS AGO 09/24/2016 OPHIEM History of tobacco use CURRENT SMOKER 05/30/2016 uses dip and lozenges. Trying to taper off and stop. OPHIEM History of tobacco use QUIT TOBACCO USE 1-7 YEARS AGO 05/30/2015 OPHIEM History of tobacco use CURRENT SMOKER 07/12/2014 PT STATES THAT HE DIPS TOBACCO FOR TWO YEARS. [facility] This section is an empty social history section. [facility] Assessment and Plan Combined list of future care activities from Department of Defense and Veterans Affairs facilities (e.g., assessment and plan notes, appointments, orders, and referrals). Additional future care activities may be listed in the Plan of Care section. Result Assessment and Plan Date Source Assessment and Plan Extracted from:Title : PHA 2024 Author: AIXA GRIMM Date: 11/29/24 ANNUAL PERIODIC HEALTH ASSESSMENT I. BUDGET TECHNICIAN INFORMATION AND DEMOGRAPHICS (SMI) 1. Last Name: COLEEN 2. First Name: ANDREW 3. Middle Name: RAH 4. Assessment Date: 5. : 6. Age: 39 7. Sex: M 8. [facility] ID Number: [id number] 9. 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 Unit Name: Nick ZELAYAAdMomentMANE ADAM 14. Duty Station/Location: [place] 15. C: [id number] 16. Is this your first Periodic Health Assessment (PHA)?: N 17. Are you enrolled in a secure messaging system with your health care provider?: 18. Current contact information: Preferred Method: Email 1 DSN: [id number] Day Time Phone: [phone] Night Time Phone: [phone] Email 1: [email or web address] Email 2: Address: [address] City: [facility]: [place] Zip Code: [address] 19. Point of contact who can always reach you: Name: SALOME ROSENBERG Phone 1: [phone] Phone 2: EMAIL: [email or web address] Address: [address] City: [facility]: [place] Zip Code: [address] II. DEPLOYMENT INFORMATION (DEP) 1. [ 0 ] Total number of deployments in the PAST 5 YEARS 4. [ N ] Are you going to deploy within the NEXT 120 DAYS? III. 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 [ No ] Does your specialty require an operational duty physical exam? 4. [ No ] Are you currently enrolled in a medical surveillance/occupational health program?: No IV. MEDICAL CONDITIONS (GIOVANI): 1. Since your last PHA, have you experienced any of the following health conditions, and if so, what is your status? [ ] Conditions with no medical care [ ] Conditions with medical care, but no longer under treatment [ ] Conditions with medical care, and NOW under treatment 2. Since your last PHA, have you experienced any of the following health conditions, and if so, what is your status? [ ] Conditions with no medical care [ ] Conditions with medical care, but no longer under treatment [ ] Conditions with medical care, and NOW under treatment 3. For any condition marked YES in question 1 or 2, are you currently on any profile or limited duty for that condition? [ ] Conditions 4. [ No ] Have you been based or stationed at a location where an open burn pit was used? 5. [ No ] Have you been exposed to toxic airborne chemicals or other airborne contaminants? 8. Have you had any surgery since your last PHA?: No 10.a. [ No ] Since your last PHA, has a health care provider recommended surgery(s) that you have not had? 11.a. [ No ] Do you currently require hearing aids, special medical supplies, CPAP, adaptive equipment, assistive technology devices, and/or other special accommodations? 12.a. [ No ] Do you have a waiver or profile for any part of your Service's physical fitness test? 13.a. [ No ] Do you have any problems wearing a gas mask, ballistic helmet, body armor, and/or chemical/biological protective garments? 14.a. [ No ] Have you ever been told by a health care provider that you SHOULD NOT receive an immunization for medical reasons? 15.a. [ No ] Do you have a permanent profile or an Assignment Limitation Code C? 16.a. [ No ] Are you on a temporary profile or limited duty? 17. [ 0 ] During the PAST 2 years, how many times have you been placed on a temporary profile or on limited duty? V. INDIVIDUAL MEDICAL READINESS (IMR) 1. [ No ] Do you have any allergies? 3. [ Not required ] Do you have red medical warning dog tags? 4. [ No ] Do you wear corrective lenses? . BEHAVIORAL HEALTH (MHA) 1. a. [ None ] Over the PAST MONTH, what major life stressors have you experienced that are a cause of significant concern or make it difficult for you to do your work, take care of things at home, or get along with other people (for example, serious conflicts with others, relationship problems, or a legal, disciplinary or financial problem)? 2. a. [ No ] In the PAST YEAR did you receive care for any mental health condition or concern such as, but not limited to post traumatic stress disorder (PTSD), depression, anxiety disorder, alcohol abuse or substance abuse? 3. [ None ] What prescription or over-the counter medications (including herbals/supplements) for sleep, pain, combat stress, or a mental health problem are you CURRENTLY taking? 4. a. [ No ] In the past 12 months, have you gambled? 5. a. [ 2-4 times a month ] How often do you have a drink containing alcohol? 5. b. [ 1 or 2 ] How many drinks containing alcohol do you have on a typical day when you are drinking? 5. c. [ Never ] How often do you have six or more drinks on one occasion? 6. Have you ever had any experience that was so frightening, horrible, or upsetting that in the PAST MONTH, you: 6. a. [ No ] Have had nightmares about it or thought about it when you did not want to? 6. b. [ No ] Tried hard not to think about it or went out of your way to avoid situations that remind you of it? 6. c. [ No ] Were constantly on guard, watchful or easily startled? 6. d. [ No ] [place] numb or detached from others, activities, or your surroundings? 6. e. [ Not answered ] [place] guilt or unable to stop blaming yourself or others for the event(s) or any problems the event(s) may have caused? 7. Over the LAST 2 WEEKS, how often have you been bothered by the following problems? 7. a. [ Not at all ] Little interest or pleasure in doing things 7. b. [ Not at all ] Feeling down, depressed, or hopeless 8. [ No ] Would you like to schedule an appointment with a health care provider to discuss any health concern(s)? 9. [ No ] Are you interested in receiving information or assistance for a stress, emotional or alcohol concern? 10. [ No ] Are you interested in receiving assistance for a family or relationship concern? 11. [ No ] Would you like to schedule a visit with a ecommerce manager, mental health care provider, or a community support counselor? VII. FAMILY HISTORY AND LIFESTYLE (LIF) 1. [ Excellent ] Overall, how would you rate your health during the PAST MONTH? 2. [ Heart-related conditio ] Member indicates that family members have the following problems 4. The following family members has/had a history of heart-related conditions: High Blood Pressure: Father, Grandfather 6. [ Yes ] I participate in moderate intensity physical activites at least 2.5 hours, or a combination of moderate and vigorous aerobic activites, for at least 75 minutes per week. 7. In a typical week, I do physical activities specifically designed to STRENGTHEN my muscles: [ 4 ] Day(s) per week 8. [ None ] What prescriptions or xlae-ggr-cpizwge medications are you CURRENTLY taking for health problems on a ROUTINE BASIS? 9. Which of the following products have you taken since your last PHA: Protein Supplements/Creatine: Once a day 11. Think about the PAST 30 DAYS. How often did you eat/drink the following foods/beverages? [ 2 servings per day ] Fruits [ 2 servings per day ] Vegetables [ 2 servings per day ] Starchy Vegetables [ 2 servings per day ] Whole Grains [ 1 or 2 servings per week ] Dairy and Calcium Containing Foods [ Rarely or Never ] Fish [ 3 or more servings per day ] Lean Protein [ 1 serving per day ] Sugar-Sweetened Beverages 12. [ No ] Have you had a cholesterol check by a health reservoir caretaker within the PAST 5 YEARS? 13.a. In the PAST 30 DAYS, which of the following products have you used on at least one day? None 15. Which of the following best describes your past tobacco use? I used tobacco in the past, but quit in 2013 16. [ No ] Are you regularly exposed to secondhand smoke? 17. [ 7 to 9 hours ] During the LAST 2 WEEKS, how many hours of sleep did you get on most days? 18. [ No ] During the LAST 2 WEEKS, have you felt impaired or unable to adequately perform due to sleepiness or poor quality sleep? 19. [ No ] Have you had any unexplained weight loss or gain since your last PHA? 20. Member is not at risk for sexually transmitted infections. 22. Since your last PHA, what, if anything, have you and your partner used to keep from getting ? [ Sterilization ] I am actively taking steps to prevent , including 23. [ No ] In the last year, have you or your partner had a scare, where you were not trying to get but were worried enough to use a home test? IX. RESERVE COMPONENT (RES) 1. [ No ] Do you have an injury, illness, Or disease which was incurred or aggravated while in a duty status since your last PHA? 4. [ Yes - Other health insurance ] Are you currently coverered under a health insurance policy? 5.a. [No, I have never applied for Worker's Compensation ] Do you have any current physical or mental health limitations related to a Worker's Compensation claim? 6. [ No ] Have you applied for or have you received a VA disability rating? X. OTHER MEDICAL (OTH) 1. [ 0 ] Rate the amount of pain you have had, on average, over the PAST 24 HOURS 3. [ No ] Since your last PHA, have you received care or treatment for any medical and/or mental health condition(s) from a civilian or non- facility? 5. Member acknowledged responsibility for reporting health issues. 7. [ No ] Woud you like to schedule an appointment with a health care provider to discuss any health concerns? XI. SEPARATION AND SENIOR CARE 1. 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 PART B. RECORD REVIEW AND RECOMMENDATIONS I. RECORD REVIEWER INFORMATION 1. Last Name: CHAI 2. First Name: NASRIN 3. Middle Name: 4. Service Branch: [employer] 5. 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 EMAIL: [email or web address] 8. Facility: [facility] 9. Unit: [facility] 10. Address: [address] [place] [address] 11. State: [place] 12. Zip Code: [address] 13. 14. Date Record Review: II. MEDICAL SCREENING 1. [ ] Date of kennel staff member's most recent PHA 2. [ 5 feet 8 inches Date: ] kennel staff member's most recently documented height 3. [ 186 pounds Date: ] kennel staff member's most recently documented weight 4. 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 6. [ Yes ] Does the kennel staff member have a laboratory test of sickle cell trait documented in their permanent medical record? 7. [ No Cholesterol Test Documented ] What is the date of the kennel staff member's most recently documented cholesterol test? 9. [ No Active Medications Documented ] List of kennel staff member's active medications listed in their permanent medical record 10. [ No ] Is there a discrepancy between the active medication record review and the kennel staff member's self-reported list of medications? 11. [ No Outside Care Documented ] List documented significant care the kennel staff member has received since their last PHA from a provider OUTSIDE the Health System 12. [ No ] Is there a discrepancy between the kennel staff member's list of OUTSIDE care (from OT5), and the OUTSIDE care found in the record? 13. [ No Inside Care Documented ] List documented significant care the kennel staff member has received since their last PHA from a provider INSIDE the Health System 15. [ Not Answered ] Confirm that vaccine exemptions are listed in the medical record for each vaccine listed IV. FAMILY HISTORY AND LIFESTYLE 1. [ Yes ] Does the [id number] reflect the kennel staff member's reported family history? VII. INDIVIDUAL MEDICAL READINESS 1. [ No ] Does the kennel staff member have an Assignment Limitation Code C? 3. [ Classification: 1 ] Most recently documented dental exam 4. [ Yes ] Is the kennel staff member current on all required immunizations in the immunization tracking system? 6. Does the kennel staff member have the following laboratory tests documented in their permanent medical record? [ Yes ] HIV test within the PAST 24 months [ Yes ] G6PD results on file [ Yes ] Blood type and Rh on file [ Yes ] DNA test on file IX. ADDITIONAL RECORD REVIEWER COMMENTS 1. This record review does NOT have a need for provider notification or referral.2. Additional comments about this record review that need to be forwarded to the Health Healthcare Market Consultant completing PART C: MERLIN reviewed. No significnat findings. Date Record Review Completed: PART C. HEALTH CARE PROVIDER I. MENTAL HEALTH ASSESSMENT (MHA) PROVIDER INFORMATION 1. Last Name: ELLY 2. First Name: KONG 3. Middle Name: 4. Service Branch: [employer] 5. 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 EMAIL: [email or web address] 8. Facility: [facility] 9. Unit: [facility] 10. Address: [address] [place] [address] 11. State: [place] 12. Zip Code: [address] 13. 14. Date HCP Review initiated: 1. Member marked that they did not have a concern or a difficulty with a major life stressor. 2. Address concerns identified on member questions 2 and 3. History of mental health care: N/A Member's response: Provider's comments: no hx Medications: N/A Member's response: Provider's comments: no meds 3. Member's AUDIT-C screening score was 2. (nothing required) 4. Member did not selina yes on two or more of questions 6a through 6e. 5. Member did not selina More than half the days or nearly every day on question 7a or 7b. 6. Suicide risk evaluation. 6. a. Ask: Over the past month, have you wished you were or wished you could go to sleep and not wake up?: No 6. b. Ask: Have you actually had any thoughts of killing yourself?: No 6. f. 1. Ask: In you lifetime, have you done anything, started to do anything, or prepared to do anything to end your life?: No 6. g. Further risk assessment comments: 7. Member states that they have not had thoughts or concerns over the past month that they might hurt or lose control with someone. 9. Summary of Provider's identified concerns needing referrals: None 11. Comments: 13. Supplemental services recommended/information provided: No supplemental services required Date MHA Certified: III. PERIODIC HEALTH ASSESSMENT (PHA) PROVIDER INFORMATION 1. Last Name: ELLY 2. First Name: KONG 3. Middle Name: 4. Service Branch: [employer] 5. 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 EMAIL: [email or web address] 8. Facility: [facility] 9. Unit: [facility] 10. Address: [address] [place] [address] 11. State: [place] 12. Zip Code: [address] 13. 14. Date HCP Review initiated: IV. PERIODIC HEALTH ASSESSMENT PROVIDER RECOMMENDATIONS and REFERRALS 1. Provider concerns with this assessment: No issues or concerns identified V. SUMMARY AND COMMENTS 1. Additional information summarizing findings during the kennel staff member assessment: 2. Provider Comments: . INDIVIDUAL MEDICAL READINESS DISPOSITION DETERMINATION GIOVANI: Ready DEN: Ready IMM: Ready LAB: Ready ME: Ready IMR Status: Fully Medically Ready VII. 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 Reference Alla 6490.07 Yes (kennel staff member DOES NOT currently have a medical condition that limits deployability) Date PHA Completed: END OF [id number] REPORT 07/13/2025 [id number] AMDS Functional Status Combined list of recent functional and cognitive assessments recorded at [facility] [employer] [facility] (VA).VA Functional [place] Measurement (FIM) Scale: 1 = Total Assistance (Subject = 0% +), 2 = Maximal Assistance (Subject = 25% +), 3 = Moderate Assistance (Subject = 50% +), 4 = Minimal Assistance (Subject = 75% +), 5 = Supervision, 6 = Modified [place] (Device), 7 = Complete [place] (Timely, Safely). Assessment Date/Time Source Assessment Type Assessment Skill Assessment Score Assessment Details No data available for this section
--- NOTE | 2025-07-13 07:41 | A.OFFPC_ITS ---
Intake Visit Reasons: Anxiety/depression meds Allergies No Known Allergies Allergy (Verified 11/01/24 09:19) Medication List - Last Reconciled 07/13/25 by LES Grace escitalopram oxalate (Lexapro) 5 mg PO DAILY Tobacco use date assessed: 11/01/24 Dental Screening Dental Screen Date: 11/01/24 HPI Anxiety/depression meds HPI Details History of Present Illness The patient is a 40 year old male presenting for a telehealth follow-up for ongoing anxiety and depression. 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 He also recently learned that his no longer wants to be with him. The patient has two young children. He denies any suicidal or homicidal ideation. 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 Review of Systems - Psychiatric: Reports ongoing anxiety, depression, and sadness. Denies suicidal or homicidal ideation. Plan 1. Anxiety And Depression The patient's symptoms of anxiety and depression are associated with recent situational stressors, including a temporary work shutdown and marital separation. He denies suicidal or homicidal ideation. Will initiate treatment with Lexapro at a low dose. Potential side effects were reviewed. The patient was encouraged to continue with therapy and maintain physical activity. A follow-up is scheduled in approximately five weeks to monitor his response to treatment. Discussion Notes I conducted a telehealth follow-up with the patient regarding his ongoing anxiety and depression, which are exacerbated by recent stressors including a work shutdown and his leaving him. He denied any suicidal or homicidal ideation. I recommended initiating a low dose of Lexapro and we went over the po tential side effects. I reinforced the importance of his continuing therapy and staying active, and I will continue to monitor him as well. We will follow up in about five weeks to assess his progress. Patient Instructions - Start taking the new medication, Lexap ro, at the prescribed low dose. - Be aware of the possible side effects of the medication, which we discussed. - It is important that you continue with your therapist or regional vice president life sales. - Continue to stay physically active and go to the gym. - We will schedule a follow-up appointme nt in about five weeks to check on how you are doing. [facility] Surgical History No pertinent past surgical history Social History Housing: House Patient Tobacco Use Status: Never used Tobacco e-Cigarette/Vaping Use: Never Used service: Yes Current occupational status: employed Cognitive needs: No Hearing needs: No Vision needs: No Questionnaire Thrive Questionnaire Date Thrive assessed: 11/01/24 I am a: Patient What is your living situation today?: I have a steady place to live Within the past 12 months, did the food you bought not last and you didn't have the money to get more?: Never true Within the past 12 months, did you worry whether your food would run out before you got money to buy more?: Never true Do you have trouble paying for medicines?: No Do you have trouble getting transportation to medical appointments?: No Do you have trouble paying your heating and electricity bill?: No Do you have trouble taking care of your child, family member or friend?: No Do you have trouble with day-to-day activities such as bathing, preparing meals, shopping, managing finances, etc.?: No Are you currently unemployed and looking for a job?: No Are you interested in more education?: No Please select the resources that you would like help with: None Currently or been in a relationship where the following occur: No concerns re ported THRIVE Score: 0 HILL-7 AMB Questionnaire HILL-7 Date HILL - 7 assessed: 11/01/24 Source: Developed by Drs. Kelvin Kumar, Dang Hunter, Mukul Ibarra and colleagues, with an educational shaye from [employer]. Physical exam (Primary Care) Tobacco/Smoking Status: Tobacco use Status Tobacco use date assessed 11/01/24 11/01/24 08:47 Patient Tobacco Use Status Never used Tobacco 11/01/24 08:47 e-Cigarette/Vaping Use Never Used 11/01/24 08:47 Thrive Assessment: Date of Thrive Assessment Date Thrive assessed 11/01/24 11/01/24 08:47 Currently or been in a relationship where the following occur: No concerns reported Telehealth Telehealth [facility] Location of provider rendering services: practice address Location of patient: address on file Patient Identification confirmed using: Name, : Yes Telehealth method: video Patient verbally consented to treatment: Yes Patient verbally consented to billing insurance company: Yes Patient informed of any privacy concerns related to visit: Yes Minutes spent on Phone/Video with Pt.: 15 Coding Level of Care Code Tele Est Pt Level 3 (96997) Diagnoses Depression F32.A Assessment & Plan Assessment & Plan (1) Depression: Code(s): F32.A - Depression, unspecified Category: Medical Plan . Medications: New escitalopram oxalate (Lexapro) 5 mg PO DAILY 30 tabs 3RF
== END 2025-07-13 10:16 | disposition home or self-care (01) ==
LOC: HO.HMCC 06:23
PROVIDERS: PCP Nurse Practitioner Family; Visit Provider Nurse Practitioner Family
DX: F32.A Depression, unspecified (principal)

== ENCOUNTER 2025-08-17 06:49 | Outpatient (AMB) | payer BC, SELFPAY ==
--- OUTSIDE RECORDS SUMMARY | 2025-08-17 06:51 | XMS_ITS | Continuity of Care Document ---
Author Name [facility] Organization [facility] Care Team Providers Care Charge Master Coordinator Name Role Phone [facility] Unavailable Unavailable Problems Combined list of problems [...] occupational health / fitness exam Active Condition [facility] closed fracture left little finger PIP Active Condition [facility] benign neoplasm Active Condition [facility] asthma exercise-induced Active Condition DoD Allergies, Adverse [...] Site Reaction Lot Number CVX Code Drug Stacker Status Comments Source influenza, injectable, quadrivalent- pf 2021 [id number] GlaxoSmithKli ne complet ed influenza , injectabl e, quadrival ent-pf 06/15/22 Given Ambulat ory Pharmac y influenza, injectable, quadrivalent- pf 2020 [id number] 150 Seqirus complet ed influenza , injectabl e, quadrival ent-pf 07/06/21 Given Ambulat ory Pharmac y SARS-CoV-2 (COVID-19) Ad26 vaccine, rec 2020 [id number] complet ed SARS-CoV- 2 (COVID-19 ) Ad26 vaccine, rec 05/09/21 Given Ambulat ory Pharmac y influenza, injectable, quadrivalent- pf 2019 [id number] 150 complet ed influenza , injectabl e, quadrival ent-pf 06/26/20 Given Ambulat ory Pharmac y influenza, injectable, quadrivalent- pf 2018 [id number] 150 Seqirus complet ed influenza , injectabl e, quadrival ent-pf 08/06/19 Given Ambulat ory Pharmac y tetanus, diphtheria, acellular pertu is 2017 [id number] 115 sanofi pasteur complet ed tetanus, diphtheri a, acellular pertussis 08/07/18 Given Ambulat ory Pharmac y INFLUENZA, SEASONAL, INJECTABLE 2017 141 complet ed [facility] influenza, injectable, quadrivalent- pf 2017 [id number] 150 Seqirus complet ed influenza , injectabl e, quadrival ent-pf 06/01/18 Given Ambulat ory Pharmac y influenza virus vaccine, inactivated 2016 [id number] Seqirus complet ed influenza virus vaccine, inactivat ed 05/15/17 Given Ambulat ory Pharmac y INFLUENZA, SEASONAL, INJECTABLE 2016 141 complet ed [facility] influenza, seasonal, injectable-pf 2015 [id number] 140 Seqirus complet ed influenza , seasonal, injectabl e-pf 06/07/16 Given Ambulat ory Pharmac y FLU,3 YRS (HISTORICAL) 2015 88 complet ed [facility] TD(ADULT) UNSPECIFIED FORMULATION 2015 139 complet ed [facility] [place] [facility] FLU,3 YRS (HISTORICAL) 2014 88 complet ed [facility] influenza, seasonal, injectable-pf 2014 [id number] 140 CSL Behring complet ed influenza , seasonal, injectabl e-pf 06/02/15 Given Ambulat ory Pharmac y FLU,3 YRS (HISTORICAL) 2013 88 complet ed [facility] influenza, seasonal, injectable-pf 2013 [id number] CSL Behring complet ed influenza , seasonal, injectabl e-pf 05/20/14 Given Ambulat ory Pharmac y Influenza, injectable, MDCK-pf 2012 [id number] 153 Novartis Pharmaceutica complet ed Influenza , injectabl e, MDCK-pf 07/01/13 Given Ambulat ory Pharmac y influenza, seasonal, injectable-pf 2011 [id number] 140 CSL Behring complet ed influenza , seasonal, injectabl e-pf 06/04/12 Given Ambulat ory Pharmac y influenza virus vaccine, whole virus 2011 zzLef t Arm [id number] 16 sanofi pasteur complet ed influenza virus vaccine, whole virus 10/02/11 Given Ambulat ory Pharmac y influenza, seasonal, injectable 2011 [id number] 141 sanofi pasteur complet ed influenza , seasonal, injectabl e 10/02/11 Given Ambulat ory Pharmac y influenza virus vaccine, whole virus 1 2011 GET UPTON [id number] 16 Sanofi Pasteur ([facility]) complet ed influenza virus vaccine, whole virus DoD Influenza, seasonal, injectable 6 2011 [id number] 141 Sanofi Pasteur ([facility]) complet ed Influenza , seasonal, injectabl e DoD yellow fever vaccine 2010 [id number] 37 sanofi pasteur complet ed yellow fever vaccine 09/22/10 Given Ambulat ory Pharmac y yellow fever vaccine 1 2010 [id number] 37 Sanofi Pasteur ([facility]) complet ed yellow fever vaccine DoD influenza virus vaccine,split 2009 [id number] 15 CSL Behring complet ed influenza virus vaccine,s plit 05/12/10 Given Ambulat ory Pharmac y influenza virus vaccine, split virus (incl. purified surface antigen)-reti red CODE 1 2009 [id number] 15 [employer] ([facility]) complet ed influenza virus vaccine, split virus (incl. purified surface antigen)- retired CODE DoD Novel Influenza-H1N 1-09,live virus,nasal 2008 [id number] 125 [employer] Inc comple t ed Novel Influenza -O2B1-67, live virus,med al 08/17/09 Given Ambulat ory Pharmac y Novel Influenza-H1N 1-09, live virus for nasal administratio n 1 2008 [id number] 125 Avenda Systems, Inc. ([facility]) complet ed Novel Influenza -X2I3-82, live virus for nasal administr ation DoD influenza virus vaccine, live 2008 [id number] [address] 3 [employer] comple t ed influenza virus vaccine, live 06/19/09 Given Ambulat ory Pharmac y influenza virus vaccine, live, attenuated, for intranasal use 1 2008 [id number] 111 [employer] Systems[employer] Inc. ([facility]) complet ed influenza virus vaccine, live, attenuate d, for intranasa l use DoD tetanus, diphtheria, acellular pertu is 2008 [id number] 115 sanofi pasteur complet ed tetanus, diphtheri a, acellular pertussis 09/10/08 Given Ambulat ory Pharmac y tetanus toxoid, reduced diphtheria toxoid, and acellular pertu is vaccine, adsorbed 1 2008 [id number] 115 Sanofi Pasteur ([facility]) complet ed tetanus [...] virus (incl. purified surface antigen)- retired CODE [facility] hepatitis A adult vaccine 2006 [id number] 52 [...] adult dosage DoD meningococcal A,C,Y,W-135 (MCV4P) 2006 [id number] 114 sanofi pasteur complet ed meningoco ccal [...] Pharmac y tuberculin purified protein derivative 2006 [id number] 96 sanofi pasteur complet ed tuberculi n purified protein derivativ e 09/18/06 Given Ambulat ory Pharmac y poliovirus vaccine, inactivated 2006 [id number] 10 sanofi pasteur complet ed polioviru s vaccine, inactivat ed 09/18/06 Given Ambulat ory Pharmac y tetanus-dipht h toxoids (Td) adult/adol 2006 [id number] 09 sanofi pasteur complet ed tetanus-d iphth toxoids (Td) adult/ado l 09/18/06 Given Ambulat ory Pharmac y tetanus and diphtheria toxoids, adsorbed, preservative free, for adult use (2 Lf of tetanus toxoid and 2 Lf of diphtheria toxoid) 1 2006 [id number] 09 Sanofi Pasteur ([facility]) complet ed tetanus [...] red CODE 1 2006 [id number] 15 Vero [employer]Kline ([facility]) complet ed influenza virus vaccine, split virus (incl. purified surface antigen)- retired CODE DoD meningococcal polysaccharid e (groups A, C, Y and W-135) diphtheria toxoid conjugate vaccine (MCV4P) 1 2006 [id number] 114 Sanofi Pasteur ([facility]) complet ed meningoco [...] and Prevention's HIV diagnostic algorithm. Refer to [facility] Lab Guide for additional information: [email or web address] aspx Testing performed by Electrochem[employer] uminescence. [id number] SAFSAM EPILAB Encounters Combined list of: 1) Encounters from Department of [facility] Affairs facilities going backup to the last 18 months, not all [place] inpatient encounters are included; 2) Encounters from the Department of Defense facilities going backup to 280 months. Location Location Details Encounter Type Encounter Number Reason For Visit Attending Provider ADM Date DC Date Status Disposition Source [facility] ) OUTPATIENT [id number] needs somethi ng checked out/uri (will bring orders) GUMARO BARNEY 12/21 Released w/o Limitations [facility]( Family Medicin e Residen cy) [employer]([facility] G[facility] Team J) OUTPATIENT [id number] Skin tag craig CHANGANN RADHA A 02/19 Released w/o Limitations [employer](D [facility] GME Team J) [employer]([facility]) OUTPATIENT [id number] possibl e broken finger on left hand MORALES RICH 11/16 Immediate Referral [employer]([facility]) [facility] Occupatio [facility]) OUTPATIENT [id number] out process [facility] STEPAN GUPTA 11/19 Released w/o Limitations [facility]) 8344R-[id number] AMDS Between Visit [id number] 02/13 Discharge Disposition: Home or Self Care 8344R-4 39 AMDS 8344R-439 AMDS Outpatient [id number] LETTY HATHAWAY 03/25 Discharge Disposition: Home or Self Care 8344R-4 39 AMDS Procedures Combined list of: 1) Procedures from Department of Veterans Affairs facilities going back up to thelast 18 months, not all [place] non-surgical procedures are included; 2) All procedures from the Department of Defense facilities. Procedure Procedure Type Code Date Perfomer Comments Sourc e No data available for this section Ambulato ry Pharmacy FITTING OF SPECTACLES, EXCEPT FOR APHAKIA; MONOFOCAL 09/23/2006 DoD INJECTION, PENICILLIN G BENZATHINE AND PENICILLIN G PROCAINE, UP TO ,200,000 UNITS 09/23/2006 [facility] Social History Combined list of available smoking, tobacco, and other social history from Department of Defense and Veterans Affairs facilities. Social History Type Response Date Comment Source Tobacco smoking status NHIS VA-TOBACCO FORMER USER 12/11/2017 [place] History of tobacco use VA-TOBACCO QUIT 5 TO < 15 YRS 12/11/2017 [place] History of tobacco use CURRENT SMOKER 12/11/2017 e-cig [place] History of tobacco use QUIT TOBACCO USE 1-7 YEARS AGO 05/22/2017 [place] History of tobacco use QUIT TOBACCO USE 1-7 YEARS AGO 09/24/2016 [place] History of tobacco use CURRENT SMOKER 05/30/2016 uses dip and lozenges. Trying to taper off and stop. [place] History of tobacco use QUIT TOBACCO USE 1-7 YEARS AGO 05/30/2015 [place] History of tobacco use CURRENT SMOKER 07/12/2014 PT STATES THAT HE DIPS TOBACCO FOR TWO YEARS. [facility] This section is an empty social history section. [facility] Assessment and Plan Combined list of future care activities from Department of Defense and Veterans Affairs facilities (e.g., assessment and plan notes, appointments, orders, and referrals). Additional future care activities may be listed in the Plan of Care section. Result Assessment and Plan Date Source Assessment and Plan Extracted from:Title : PHA 2024 Author: AIXA GRIMM Date: 11/29/24 ANNUAL PERIODIC HEALTH ASSESSMENT I. DIRECTOR INDEPENDENT INFORMATION AND DEMOGRAPHICS (SMI) 1. Last Name: COLEEN 2. First Name: ANDREW 3. Middle Name: RAH 4. Assessment Date: 5. : 6. Age: 39 7. Sex: M 8. [facility] ID Number: [id number] 9. 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 Unit Name: Nick ZELAYABeOnDeskMANE ADAM 14. Duty Station/Location: [place] 15. C: [id number] 16. Is this your first Periodic Health Assessment (PHA)?: N 17. Are you enrolled in a secure messaging system with your health care provider?: 18. Current contact information: Preferred Method: Email 1 DSN: [id number] Day Time Phone: [phone] Night Time Phone: [phone] Email 1: [email or web address] Email 2: Address: [address] City: [place]: [place] Zip Code: [address] 19. Point of contact who can always reach you: Name: SALOME ROSENBERG Phone 1: [phone] Phone 2: EMAIL: [email or web address] Address: [address] City: [place]: [place] Zip Code: [address] II. DEPLOYMENT INFORMATION (DEP) 1. [ 0 [...] easily startled? 6. d. [ No ] [place] numb or detached from others, activities, or your surroundings? 6. e. [ Not answered ] [place] guilt or unable to stop blaming yourself [...] like to schedule a visit with a car pincher, mental health care provider, or a community [...] 8. [ None ] What prescriptions or ghyj-iag-lawlifd medications are you CURRENTLY taking for health [...] had a cholesterol check by a health clinical care manager within the PAST 5 YEARS? 13.a. In [...] discuss any health concerns? XI. SEPARATION AND SNF 1. [ No ] Are you planning to separate or retire within the next year from Active Duty or [place] Duty (activated for greater than 30 continuous days) OR do you intend to file a claim for disability compensation with the [employer]? PART B. RECORD REVIEW AND RECOMMENDATIONS I. RECORD REVIEWER INFORMATION 1. Last Name: CHAI 2. First Name: NASRIN 3. Middle Name: 4. Service Branch: [employer] 5. 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 EMAIL: [email or web address] 8. Facility: [facility] 9. Unit: [facility] 10. Address: [address] [place] [address] 11. State: [place] 12. Zip Code: [address] 13. 14. Date Record Review: II. MEDICAL SCREENING 1. [ ] Date of committee member's most recent PHA 2. [ 5 feet 8 inches Date: ] committee member's most recently documented height 3. [ 186 pounds Date: ] committee member's most recently documented weight 4. [ 124/72 Date: ] committee member's most recently documented blood pressure reading 5. [ No ] Does the committee member have a history of abnormal blood pressure since their last PHA? 6. [ Yes ] Does the committee member have a laboratory test of sickle cell trait documented in their permanent medical record? 7. [ No Cholesterol Test Documented ] What is the date of the committee member's most recently documented cholesterol test? 9. [ No Active Medications Documented ] List of committee member's active medications listed in their permanent medical record 10. [ No ] Is there a discrepancy between the active medication record review and the committee member's self-reported list of medications? 11. [ No Outside Care Documented ] List documented significant care the committee member has received since their last PHA from a provider OUTSIDE the Health System 12. [ No ] Is there a discrepancy between the committee member's list of OUTSIDE care (from OT5), and the OUTSIDE care found in the record? 13. [ No Inside Care Documented ] List documented significant care the committee member has received since their last PHA from a provider INSIDE the Health System 15. [ Not Answered ] Confirm that vaccine exemptions are listed in the medical record for each vaccine listed IV. FAMILY HISTORY AND LIFESTYLE 1. [ Yes ] Does the [id number] reflect the committee member's reported family history? VII. INDIVIDUAL MEDICAL READINESS 1. [ No ] Does the committee member have an Assignment Limitation Code C? 3. [ Classification: 1 ] Most recently documented dental exam 4. [ Yes ] Is the committee member current on all required immunizations in the immunization tracking system? 6. Does the committee member have the following laboratory tests documented [...] need to be forwarded to the Health Journeyman Meat Cutter completing PART C: MERLIN reviewed. No significnat findings. Date Record Review Completed: PART C. HEALTH CARE PROVIDER I. MENTAL HEALTH ASSESSMENT (MHA) PROVIDER INFORMATION 1. Last Name: ELLY 2. First Name: KONG 3. Middle Name: 4. Service Branch: [place] [employer] [place] 5. 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 EMAIL: [email or web address] 8. Facility: [facility] 9. Unit: [facility] 10. Address: [address] [place] [address] 11. State: [place] 12. Zip Code: [address] 13. 14. Date HCP Review initiated: 1. [...] KONG 3. Middle Name: 4. Service Branch: [place] [employer] [place] 5. 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 EMAIL: [email or web address] 8. Facility: [facility] 9. Unit: [facility] 10. Address: [address] [place] [address] 11. State: [place] 12. Zip Code: [address] 13. 14. Date HCP Review initiated: IV. PERIODIC HEALTH ASSESSMENT PROVIDER RECOMMENDATIONS and REFERRALS 1. Provider concerns with this assessment: No issues or concerns identified V. SUMMARY AND COMMENTS 1. Additional information summarizing findings during the committee member assessment: 2. Provider Comments: . INDIVIDUAL MEDICAL READINESS DISPOSITION DETERMINATION GIOVANI: Ready DEN: Ready IMM: Ready LAB: Ready ME: Ready IMR Status: Fully Medically Ready VII. SERVICE MEDICAL DEPLOYABILITY EVALUATION INDICATED Based on your review of all documentation, is the committee member medically deployable without limitations? Reference Alla 6490.07 Yes (committee member DOES NOT currently have a medical condition that limits deployability) Date PHA Completed: END OF [id number] REPORT 08/17/2025 [id number] AMDS Functional Status Combined list of recent functional and cognitive assessments recorded at Department of Defense and Veterans Affairs (VA).VA Functional Glascock Measurement (FIM) Scale: 1 = Total Assistance (Subject = 0% +), 2 = Maximal Assistance (Subject = 25% +), 3 = Moderate Assistance (Subject = 50% +), 4 = Minimal Assistance (Subject = 75% +), 5 = Supervision, 6 = Modified Glascock (Device), 7 = Complete Glascock (Timely, Safely). Assessment Date/Time Source Assessment Type Assessment Skill Assessment Score Assessment Details No data available for this section
--- NOTE | 2025-08-17 07:09 | MHC.PC.OV ---
Intake Visit Reasons: 5 weeks f/up-depression Allergies No Known Allergies Allergy (Verified 11/01/24 09:19) Tobacco use date assessed: 11/01/24 Dental Screening Dental Screen Date: 11/01/24 HPI 5 weeks f/up-depression HPI Details History of Present Illness The patient is a 40 year old male presenting for a telehealth visit for follow-up of elevated liver enzymes. Elevated liver enzymes were noted in January, but planned repeat testing was not completed. A prior abdominal ultrasound showed no signs of fatty liver. The patient is currently on testosterone therapy. Regarding his psychosocial history, the patient is going through a divorce but reports he is doing much better and denies any suicidal or homicidal ideation. Actively moving into his own place, going to the gym, recently earned a promotion at work. Pt remains in good spirits. Review of Systems - Constitutional: Denies fevers and chills. - Cardiovascular: Denies chest pain. - Respiratory: Denies shortness of breath. - Gastrointestinal: Denies abdominal pain or changes in bowel habits. - Psychiatric: The patient reports he is doing much better despite going through a divorce and denies suicidal or homicidal ideation. Plan 1. Elevated Liver Enzymes The patient has a history of elevated liver enzymes noted in January, with a prior abdominal ultrasound that was negative for fatty liver. The contribution of his current testosterone therapy to this elevation is being considered. He will undergo repeat liver enzyme testing and an added hepatitis screen to further evaluate. 2. Adjustment Reaction The patient is currently going through a divorce but reports he is doing much better. He denies any suicidal or homicidal ideation. His mental state will be monitored. Discussion Notes I discussed with the patient his history of elevated liver enzymes from January and noted that his previous abdominal ultrasound was unremarkable for fatty liver. I advised repeating his liver enzyme labs, to which I have added a hepatitis screen, to assess the current status. We will proceed with the plan based on the results of these tests. We also discussed his well-being in the context of his divorce, and he confirmed he is feeling much better and denied any suicidal or homicidal thoughts. I also mentioned that his testosterone therapy could be a contributing factor. Patient Instructions - Please go to the lab to get your blood drawn. - We are checking your liver function and testing for hepatitis. - We will go over the results with you once they are available. PFSH Surgical History No pertinent past surgical history Social History Housing: House Patient Tobacco Use Status: Never used Tobacco e-Cigarette/Vaping Use: Never Used service: Yes Current occupational status: employed Cognitive needs: No Hearing needs: No Vision needs: No Questionnaire Thrive Questionnaire Date Thrive assessed: 11/01/24 I am a: Patient What is your living situation today?: I have a steady place to live Within the past 12 months, did the food you bought not last and you didn't have the money to get more?: Never true Within the past 12 months, did you worry whether your food would run out before you got money to buy more?: Never true Do you have trouble paying for medicines?: No Do you have trouble getting transportation to medical appointments?: No Do you have trouble paying your heating and electricity bill?: No Do you have trouble taking care of your child, family member or friend?: No Do you have trouble with day-to-day activities such as bathing, preparing meals, shopping, managing finances, etc.?: No Are you currently unemployed and looking for a job?: No Are you interested in more education?: No Please select the resources that you would like help with: None Currently or been in a relationship where the following occur: No concerns reported THRIVE Score: 0 HILL-7 AMB Questionnaire HILL-7 Date HILL - 7 assessed: 11/01/24 Source: Developed by Drs. Kelvin Kumar, Dang Hunter, Mukul Ibarra and colleagues, with an educational shaye from [employer]. Physical exam (Primary Care) Tobacco/Smoking Status: Tobacco use Status Tobacco use date assessed 11/01/24 08/17/25 07:11 Patient Tobacco Use Status Never used Tobacco 08/17/25 07:11 e-Cigarette/Vaping Use Never Used 08/17/25 07:11 Thrive Assessment: Date of Thrive Assessment Date Thrive assessed 11/01/24 08/17/25 07:11 Currently or been in a relationship where the following occur: No concerns reported Telehealth Telehealth Telehealth Platform: [facility] Location of provider rendering services: practice address Location of patient: address on file Patient Identification confirmed using: Name, : Yes Telehealth method: video Patient verbally consented to treatment: Yes Patient verbally consented to billing insurance company: Yes Patient informed of any privacy concerns related to visit: Yes Minutes spent on Phone/Video with Pt.: 12 Coding Level of Care Code Tele Est Pt Level 3 (77953) Diagnoses Anxiety and depression F41.9; F32.A Elevated liver enzymes R74.8 Assessment & Plan Assessment & Plan (1) Anxiety and depression: Code(s): F41.9 - Anxiety disorder, unspecified; F32.A - Depression, unspecified Category: Medical (2) Elevated liver enzymes: Code(s): R74.8 - Abnormal levels of other serum enzymes Category: Medical Plan . Orders: Orders Complete Blood Count Auto Diff Today F32.A - Depression, unspecified, F41.9 - Anxiety disorder, unspecified, R74.8 - Abnormal levels of other serum enzymes Comprehensive [place]. Panel Fast Today F32.A - Depression, unspecified, F41.9 - Anxiety disorder, unspecified, R74.8 - Abnormal levels of other serum enzymes TSH reflex Free T4 Today F32.A - Depression, unspecified, F41.9 - Anxiety disorder, unspecified, R74.8 - Abnormal levels of other serum enzymes UA CC w/rflx Micro + Cult Today F32.A - Depression, unspecified, F41.9 - Anxiety disorder, unspecified, R74.8 - Abnormal levels of other serum enzymes Lipid Panel Today F32.A - Depression, unspecified, F41.9 - Anxiety disorder, unspecified, R74.8 - Abnormal levels of other serum enzymes Hepatitis A,B,C Profile Today F32.A - Depression, unspecified, F41.9 - Anxiety disorder, unspecified, R74.8 - Abnormal levels of other serum enzymes
== END 2025-08-17 08:11 | disposition home or self-care (01) ==
LOC: HO.HMCC 06:50
PROVIDERS: PCP Nurse Practitioner Family; Visit Provider Nurse Practitioner Family
DX: F41.9 Anxiety disorder, unspecified (principal); F32.A Depression, unspecified; R74.8 Abnormal levels of other serum enzymes

== ENCOUNTER 2025-08-18 06:06 | Outpatient (REF) | payer BC, SELFPAY ==
--- OUTSIDE RECORDS SUMMARY | 2025-08-18 06:07 | XMS_ITS | Continuity of Care Document ---
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 Name Role Phone [facility] Unavailable Unavailable Problems Combined list of problems [...] occupational health / fitness exam Active Condition [facility] closed fracture left little finger PIP Active Condition [facility] benign neoplasm Active Condition [facility] asthma exercise-induced Active Condition DoD [...] Site Reaction Lot Number CVX Code Drug Gas Regulator 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 Status Comments Source influenza, injectable, quadrivalent- pf 2021 [id number] GlaxoSmithKli ne complet ed influenza , injectabl e, quadrival ent-pf 06/15/22 Given Ambulat ory Pharmac y influenza, injectable, quadrivalent- pf 2020 [id number] 150 Seqirus complet ed influenza , injectabl e, quadrival ent-pf 07/06/21 Given Ambulat ory Pharmac y SARS-CoV-2 (COVID-19) Ad26 vaccine, rec 2020 [id number] complet ed SARS-CoV- 2 (COVID-19 ) Ad26 vaccine, rec 05/09/21 Given Ambulat ory Pharmac y influenza, injectable, quadrivalent- pf 2019 [id number] 150 complet ed influenza , injectabl e, quadrival ent-pf 06/26/20 Given Ambulat ory Pharmac y influenza, injectable, quadrivalent- pf 2018 [id number] 150 Seqirus complet ed influenza , injectabl e, quadrival ent-pf 08/06/19 Given Ambulat ory Pharmac y tetanus, diphtheria, acellular pertu is 2017 [id number] 115 sanofi pasteur complet ed tetanus, diphtheri a, acellular pertussis 08/07/18 Given Ambulat ory Pharmac y INFLUENZA, SEASONAL, INJECTABLE 2017 141 complet ed [facility] influenza, injectable, quadrivalent- pf 2017 [id number] 318-03 150 Seqirus complet ed influenza , injectabl e, quadrival ent-pf 06/01/18 Given Ambulat ory Pharmac y influenza virus vaccine, inactivated 2016 [id number] Seqirus complet ed influenza virus vaccine, inactivat ed 05/15/17 Given Ambulat ory Pharmac y INFLUENZA, SEASONAL, INJECTABLE 2016 141 complet ed [facility] influenza, seasonal, injectable-pf 2015 [id number] 140 Seqirus complet ed influenza , seasonal, injectabl e-pf 06/07/16 Given Ambulat ory Pharmac y FLU,3 YRS (HISTORICAL) 2015 88 complet ed [facility] TD(ADULT) UNSPECIFIED FORMULATION 2015 139 complet ed [facility] FLU,3 YRS (HISTORICAL) 2014 88 complet ed [facility] influenza, seasonal, injectable-pf 2014 [id number] 140 CSL Behring complet ed influenza , seasonal, injectabl e-pf 06/02/15 Given Ambulat ory Pharmac y FLU,3 YRS (HISTORICAL) 2013 88 complet ed [facility] influenza, seasonal, injectable-pf 2013 [id number] 140 CSL Behring complet ed influenza , seasonal, injectabl e-pf 05/20/14 Given Ambulat ory Pharmac y Influenza, injectable, MDCK-pf 2012 [id number] 153 Novartis Pharmaceutica complet ed Influenza , injectabl e, MDCK-pf 07/01/13 Given Ambulat ory Pharmac y influenza, seasonal, injectable-pf 2011 [id number] 140 CSL Behring complet ed influenza , seasonal, injectabl e-pf 06/04/12 Given Ambulat ory Pharmac y influenza virus vaccine, whole virus 2011 zzLef t Arm [id number] 16 sanofi pasteur complet ed influenza virus vaccine, whole virus 10/02/11 Given Ambulat ory Pharmac y influenza, seasonal, injectable 2011 [id number] 141 sanofi pasteur complet ed influenza , seasonal, injectabl e 10/02/11 Given Ambulat ory Pharmac y influenza virus vaccine, whole virus 1 [address] [place] [id number] 16 Sanofi Pasteur ([facility]) complet ed influenza virus vaccine, whole virus DoD Influenza, seasonal, injectable 6 2011 [id number] 141 Sanofi Pasteur ([facility]) complet ed Influenza , seasonal, injectabl e DoD yellow fever vaccine 2010 [id number] 37 sanofi pasteur complet ed yellow fever vaccine 09/22/10 Given Ambulat ory Pharmac y yellow fever vaccine 1 2010 [id number] 37 Sanofi Pasteur ([facility]) complet ed yellow fever vaccine DoD influenza virus vaccine,split 2009 [id number] 15 CSL Behring complet ed influenza virus vaccine,s plit 05/12/10 Given Ambulat ory Pharmac y influenza virus vaccine, split virus (incl. purified surface antigen)-reti red CODE 1 2009 [id number] 15 [employer] ([facility]) complet ed influenza virus vaccine, split virus (incl. purified surface antigen)- retired CODE DoD Novel Influenza-H1N 1-09,live virus,nasal 2008 [id number] 125 [employer] Inc comple t ed Novel Influenza -N8R1-66, live virus,med al 08/17/09 Given Ambulat ory Pharmac y Novel Influenza-H1N 1-09, live virus for nasal administratio n 1 2008 [id number] 125 [employer] (MED) complet ed Novel Influenza -C2W9-35, live virus for nasal administr ation DoD influenza virus vaccine, live 2008 [id number] 111 [employer] comple t ed influenza virus vaccine, live 06/19/09 Given Ambulat ory Pharmac y influenza virus vaccine, live, attenuated, for intranasal use 1 2008 [id number] 111 [employer] (MED) complet ed influenza virus vaccine, live, attenuate d, for intranasa l use DoD tetanus, diphtheria, acellular pertu is 2008 [id number] 115 sanofi pasteur complet ed tetanus, diphtheri a, acellular pertussis 09/10/08 Given Ambulat ory Pharmac y tetanus toxoid, reduced diphtheria toxoid, and acellular pertu is vaccine, adsorbed 1 2008 [id number] 115 Sanofi Pasteur ([facility]) complet ed tetanus [...] virus (incl. purified surface antigen)- retired CODE [facility] hepatitis A adult vaccine 2006 [...] adult dosage DoD meningococcal A,C,Y,W-135 (MCV4P) 2006 [id number] 114 sanofi pasteur complet ed meningoco ccal [...] Pharmac y tuberculin purified protein derivative 2006 [id number] 96 sanofi pasteur complet ed tuberculi n purified protein derivativ e 09/18/06 Given Ambulat ory Pharmac y poliovirus vaccine, inactivated 2006 [id number] 10 sanofi pasteur complet ed polioviru s vaccine, inactivat ed 09/18/06 Given Ambulat ory Pharmac y tetanus-dipht h toxoids (Td) adult/adol 2006 [id number] 09 sanofi pasteur complet ed tetanus-d iphth toxoids (Td) adult/ado l 09/18/06 Given Ambulat ory Pharmac y tetanus and diphtheria toxoids, adsorbed, preservative free, for adult use (2 Lf of tetanus toxoid and 2 Lf of diphtheria toxoid) 1 2006 [id number] 09 Sanofi Pasteur ([facility]) complet ed tetanus [...] red CODE 1 2006 [id number] 15 [facility] ([facility]) complet ed influenza virus vaccine, split virus (incl. purified surface antigen)- retired CODE DoD meningococcal polysaccharid e (groups A, C, Y and W-135) diphtheria toxoid conjugate vaccine (MCV4P) 1 2006 [id number] 114 Sanofi Pasteur ([facility]) complet ed meningoco [...] and Prevention's HIV diagnostic algorithm. Refer to [facility] Lab Guide for additional information: [email or web address]. aspx Testing performed by [employer]chem[employer] uminescence. 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 Location Location Details Encounter Type Encounter Number Reason For Visit Attending Provider ADM Date DC Date Status Disposition Source [facility] ) OUTPATIENT [id number] needs somethi ng checked out/uri (will bring orders) GUMARO BARNEY 12/21 Released w/o Limitations [facility]( Family Medicin e Residen cy) [employer]([facility] Team J) OUTPATIENT [id number] Skin tag craig CHANGANN RADHA A 02/19 Released w/o Limitations [employer]([facility]) [employer]([facility]) OUTPATIENT [id number] possibl e broken finger on left hand MORALES RICH 11/16 Immediate Referral [employer]) OUTPATIENT [id number] out process ing [facility] STEPAN GUPTA 11/19 Released w/o Limitations [facility] 8344R-[id number] AMDS Between Visit [id number] 02/13 Discharge Disposition: Home or Self Care 8344R-4 39 AMDS 8344R-439 AMDS Outpatient [id number] LETTY HATHAWAY 03/25 Discharge Disposition: Home or Self Care 8344R-4 39 AMDS Procedures Combined list of: 1) Procedures from Department of Veterans Affairs facilities going back up to thelast 18 months, not all [place] non-surgical procedures are included; 2) All procedures from the Department of Defense facilities. Procedure Procedure Type Code Date Perfomer Comments Sourc e FITTING OF SPECTACLES, EXCEPT FOR APHAKIA; MONOFOCAL 09/23/2006 DoD INJECTION, PENICILLIN G BENZATHINE AND PENICILLIN G PROCAINE, UP TO 1,200,000 UNITS 09/23/2006 [facility] No data available for this section Ambulato ry Pharmacy Social History Combined list of available smoking, tobacco, and other social history from Department of Defense and Veterans Affairs facilities. Social History Type Response Date Comment Source Tobacco smoking status NHIS [place]-TOBACCO FORMER USER 12/11/2017 [facility] History of tobacco use [facility]-TOBACCO QUIT 5 TO < 15 YRS 12/11/2017 [facility] History of tobacco use CURRENT SMOKER 12/11/2017 e-cig [facility] History of tobacco use QUIT TOBACCO USE 1-7 YEARS AGO 05/22/2017 [facility] History of tobacco use QUIT TOBACCO USE 1-7 YEARS AGO 09/24/2016 [facility] History of tobacco use CURRENT SMOKER 05/30/2016 uses dip and lozenges. Trying to taper off and stop. [facility] History of tobacco use QUIT TOBACCO USE 1-7 YEARS AGO 05/30/2015 [facility] History of tobacco use CURRENT SMOKER 07/12/2014 PT STATES THAT HE DIPS TOBACCO FOR TWO YEARS. [facility] This section is an empty social history section. [facility] Assessment and Plan Combined list [...] Date: 11/29/24 ANNUAL PERIODIC HEALTH ASSESSMENT I. RESEARCH ASSOCIATE INFORMATION AND DEMOGRAPHICS (SMI) 1. Last Name: COLEEN 2. First Name: ANDREW 3. Middle Name: RAH 4. Assessment Date: 5. : 6. Age: 39 7. Sex: M 8. [facility] ID Number: [id number] 9. 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 Unit Name: Nick DAAM 14. Duty Station/Location: [place] 15. C: [id number] 16. Is this your first Periodic Health Assessment (PHA)?: N 17. Are you enrolled in a secure messaging system with your health care provider?: 18. Current contact information: Preferred Method: Email 1 DSN: [id number] Day Time Phone: [phone] Night Time Phone: [phone] Email 1: [email or web address] Email 2: Address: [address] City: [facility]: [place] Zip Code: [address] 19. Point of contact who can always reach you: Name: SALOME ROSENBERG Phone 1: [phone] Phone 2: EMAIL: [email or web address] Address: [address] City: [facility]: [place] Zip Code: [address] II. DEPLOYMENT INFORMATION (DEP) 1. [ 0 [...] easily startled? 6. d. [ No ] [place] numb or detached from others, activities, or your surroundings? 6. e. [ Not answered ] [place] guilt or unable to stop blaming yourself [...] like to schedule a visit with a proof coin collector, mental health care provider, or a community [...] 8. [ None ] What prescriptions or koic-pjf-vnpmamx medications are you CURRENTLY taking for health [...] had a cholesterol check by a health nurse healthcare manager within the PAST 5 YEARS? 13.a. [...] discuss any health concerns? XI. SEPARATION AND CUSTODIAL 1. 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 PART B. RECORD REVIEW AND RECOMMENDATIONS I. RECORD REVIEWER INFORMATION 1. Last Name: CHAI 2. First Name: NASRIN 3. Middle Name: 4. Service Branch: [employer] 5. 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 EMAIL: [email or web address] 8. Facility: [facility] 9. Unit: [facility] 10. Address: [address] [place] [address] 11. State: [place] 12. Zip Code: [address] 13. 14. Date Record Review: II. MEDICAL SCREENING 1. [ ] Date of crew member's most recent PHA 2. [ 5 feet 8 inches Date: ] crew member's most recently documented height 3. [ 186 pounds Date: ] crew member's most recently documented weight 4. [ 124/72 Date: ] crew member's most recently documented blood pressure reading 5. [ No ] Does the crew member have a history of abnormal blood pressure since their last PHA? 6. [ Yes ] Does the crew member have a laboratory test of sickle cell trait documented in their permanent medical record? 7. [ No Cholesterol Test Documented ] What is the date of the crew member's most recently documented cholesterol test? 9. [ No Active Medications Documented ] List of crew member's active medications listed in their permanent medical record 10. [ No ] Is there a discrepancy between the active medication record review and the crew member's self-reported list of medications? 11. [ No Outside Care Documented ] List documented significant care the crew member has received since their last PHA from a provider OUTSIDE the Health System 12. [ No ] Is there a discrepancy between the crew member's list of OUTSIDE care (from OT5), and the OUTSIDE care found in the record? 13. [ No Inside Care Documented ] List documented significant care the crew member has received since their last PHA from a provider INSIDE the Health System 15. [ Not Answered ] Confirm that vaccine exemptions are listed in the medical record for each vaccine listed IV. FAMILY HISTORY AND LIFESTYLE 1. [ Yes ] Does the [id number] reflect the crew member's reported family history? VII. INDIVIDUAL MEDICAL READINESS 1. [ No ] Does the crew member have an Assignment Limitation Code C? 3. [ Classification: 1 ] Most recently documented dental exam 4. [ Yes ] Is the crew member current on all required immunizations in the immunization tracking system? 6. 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 No significnat findings. Date Record Review Completed: PART C. HEALTH CARE PROVIDER I. MENTAL HEALTH ASSESSMENT (MHA) PROVIDER INFORMATION 1. Last Name: ELLY 2. First Name: KONG 3. Middle Name: 4. Service Branch: [email or web address] 5. 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 EMAIL: [email or web address] 8. Facility: [facility] 9. Unit: [facility] 10. Address: [address] [place] [address] 11. State: [place] 12. Zip Code: [address] 13. 14. Date HCP Review initiated: 1. [...] KONG 3. Middle Name: 4. Service Branch: [email or web address] 5. 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 EMAIL: [email or web address] 8. Facility: [facility] 9. Unit: [facility] 10. Address: [address] [place] [address] 11. State: [place] 12. Zip Code: [address] 13. 14. Date HCP Review initiated: IV. PERIODIC HEALTH ASSESSMENT PROVIDER RECOMMENDATIONS and REFERRALS 1. Provider concerns with this assessment: No issues or concerns identified V. SUMMARY AND COMMENTS 1. Additional information summarizing findings during the crew member assessment: 2. Provider Comments: . INDIVIDUAL MEDICAL READINESS DISPOSITION DETERMINATION GIOVANI: Ready DEN: Ready IMM: Ready LAB: Ready ME: Ready IMR Status: Fully Medically Ready VII. SERVICE MEDICAL DEPLOYABILITY EVALUATION INDICATED Based on your review of all documentation, is the crew member medically deployable without limitations? Reference Alla 6490.07 Yes (crew member DOES NOT currently have a medical condition that limits deployability) Date PHA Completed: END OF [id number] REPORT 08/18/2025 [id number] AMDS Functional Status Combined list of recent functional and cognitive assessments recorded at Department of Defense and Veterans Affairs (VA).VA Functional [place] Measurement (FIM) Scale: 1 = Total Assistance (Subject = 0% +), 2 = Maximal Assistance (Subject = 25% +), 3 = Moderate Assistance (Subject = 50% +), 4 = Minimal Assistance (Subject = 75% +), 5 = Supervision, 6 = Modified [place] (Device), 7 = Complete [place] (Timely, Safely). Assessment Date/Time Source Assessment Type Assessment Skill Assessment Score Assessment Details No data available for this section
[2025-08-18 10:07] LABS: MANUAL DIFF FLAG NO
[2025-08-18 10:22] LABS: Hematocrit 46.6 % (42.0-52.0); Hemoglobin 15.5 g/dl (14.0-18.0); Imm Gran Abs Auto 0.02 X10*3/uL (0.00-0.03); Imm Gran Pct Auto 0.3 % (0.0-0.4); Lymphocytes Absolute Auto 2.1 X10*3/uL (1.2-4.9); Mean Corpuscular HGB Conc 33.3 g/dl (31.0-36.0); Mean Corpuscular Hemoglobin 29.0 pg (27.0-33.0); Mean Corpuscular Volume 87.3 fL (80.0-98.0); NRBC Abs Auto 0.000 X10*3/uL (0.0-0.012); NRBC Pct Auto 0.0 /100WBC (0.0-0.2); Platelet Count 160 X10*3/uL (160-400); Red Blood Count 5.34 X10*6/uL (4.60-5.80); White Blood Count 6.1 X10*3/uL (4.8-10.8)
[2025-08-18 10:55] LABS: Alanine Aminotransferase 38 U/L (0-40); Albumin Level 4.7 g/dL (3.5-5.0); Alkaline Phosphatase 39 U/L (39-117); Anion Gap 10 (12-20); Aspartate Amino Transferase 30 U/L (5-37); Blood Urea Nitrogen 17 mg/dL (9-16); Calcium 9.6 mg/dL (8.4-10.2); Carbon Dioxide 26 mmol/L (22-29); Chloride 105 mmol/L (96-108); Cholesterol 185 mg/dL (<200); Estimated Glomerular Filt Rate > 60; HDL Cholesterol 46 mg/dL (>40); Potassium 4.2 mmol/L (3.3-5.1); Sodium 137 mmol/L (135-145); Total Protein 6.8 g/dL (6.5-8.0); Triglycerides 57 mg/dL (<150)
[2025-08-18 11:22] LABS: HBS Num1 16.62 mIU/mL (0-7.99); HBc Num1 0.06 S/CO (0.00-0.79); HBsAGNum1 0.35 S/CO (0.00-0.99); Hepatitis A Antibody IgM 0.20 Index (0-0.79); Hepatitis B Surface Antigen Negative (Negative); ~HepC Num1 0.07 S/CO (0.00-0.79); ~Hepatitis A Antibody IgM Nonreactive (Nonreactive); ~Hepatitis B Surface Antibody REACTIVE (Nonreactive); ~Hepatitis C Antibody Nonreactive (Nonreactive)
== END 2025-08-18 06:07 | disposition home or self-care (01) ==
LOC: HO.HMGCLDS 06:06
PROVIDERS: PCP Nurse Practitioner Family; Visit Provider Nurse Practitioner Family
DX: Z01.84 Encounter for antibody response examination (principal); R74.8 Abnormal levels of other serum enzymes; F41.9 Anxiety disorder, unspecified; F32.A Depression, unspecified
CPT/HCPCS: 36415; 80053; 80061; 84443; 85025; 86704; 86706; 86709; 86803; 87340